=== PATIENT | female | born 1960 | race African-American/Black ===

== ENCOUNTER 2016-11-09 20:20 | Inpatient (IN) | payer OTHER ==
[~2016-11-09] VITALS: Ht 172.7 cm; Wt 106.1 kg
[~2016-11-09 20:20] MED LIST: ALLO300T PO; AMLO1CAP12 PO; APIX5TAB PO; ASPI325T11 PO; ASPI325T4 PO; ASPI81TA9 PO; BUME2TAB PO; CALC200T23 PO; CETI10CA PO; CHEMO; CHOL10003 PO; CHOL2000 PO; CLON0.2T PO; CLON0.3T PO; DENO120V SQ; EXEM25TA2 PO; FLUT1DIS3 IH; FURO-68 PO; FURO-69 PO; GABA-586 PO; GLIM1TAB2 PO; GUAI600T38 PO; HYDR25TA9 PO; IPRA3AMP NEB; LETR2.5T18 PO; LEVO250T25 PO; LORA10TA3 PO; MAG DELAY64 MG PO; METH-38 PO; METO100T2 PO; METO25TA4 PO; MONT10TA9 PO; MOVANTIK25 MG PO; MULT1TAB52 PO; OXYC-250 PO; OXYC40TA21 PO; POLY17PO5 PO; POTA10CA PO; PRED20TA PO; PROAIR HFA8.5 GM IH; SENN8.6C2 PO
--- NOTE | 2016-11-09 21:41 | RAD ---
PROCEDURE CT head without intravenous contrast. HISTORY Altered mental status. TECHNIQUE Axial images are obtained of the head from the skull base through the vertex without IV contrast Exposure: One or more of the following individualized dose reduction techniques were utilized for this examination: 1. Automated exposure control. 2. Adjustment of the mA and/or kV according to patient size. 3. Use of iterative reconstruction technique. COMPARISON None. FINDINGS The ventricles are appropriate in size, shape, and location for the patient's age.No obvious intracranial mass, mass-effect, midline shift, hemorrhage or obvious acute infarction is identified.Basilar cisterns are patent. Patchy, nonspecific white matter changes are seen, probably from chronic microvascular ischemic disease. Numerous small lytic lesions are seen in the calvarium. These could represent metastatic disease versus myeloma.The visualized paranasal sinuses appear clear. IMPRESSION 1. No acute intracranial process. Please note that CT can be relatively insensitive to acute ischemic infarction for up to 24 hours after symptom onset. 2. Nonspecific white matter changes, probably from chronic microvascular ischemic disease. 3. Multiple small numerous small lytic lesions of the calvarium. Correlate with possibility of metastatic disease versus myeloma. Electronically signed by: Cong Darden MD (Nov 09, 2016 21:40:04)
[2016-11-09 22:08] LABS: INR 1.5 (0.8-1.1)
[2016-11-09 22:38] LABS: BASO # 0.1 x10^3/uL (0.0-0.2); BASO % 1 % (0-3); EOS % 0 % (0-3); HEMATOCRIT 32.9 % (36.0-47.0); HEMOGLOBIN 10.3 g/dL (12.0-15.5); LYMPH # 1.6 x10^3/uL (1.0-4.8); LYMPH % 18 % (24-48); MEAN CORPUSCULAR HEMOGLOBIN 33 pg (25-35); MEAN CORPUSCULAR HGB CONC 31 g/dL (31-37); MEAN CORPUSCULAR VOLUME 106 fL (79-100); MONO % 7 % (0-9); NEUT % 74 % (31-73); PLATELET COUNT 63 x10^3/uL (140-400); RED BLOOD COUNT 3.12 x10^6/uL (3.50-5.40); RED CELL DISTRIBUTION WIDTH 24.4 % (11.5-14.5); WHITE BLOOD COUNT 8.7 x10^3/uL (4.0-11.0)
[2016-11-09 22:53] LABS: CALCIUM 9.3 mg/dL (8.5-10.1); CREATININE 4.8 mg/dL (0.6-1.0); GFR 11.5; POTASSIUM 3.5 mmol/L (3.5-5.1)
[2016-11-09 22:59] LABS: ALBUMIN 2.1 g/dL (3.4-5.0); DIRECT BILIRUBIN 6.9 mg/dL (0.0-0.2); MAGNESIUM 2.6 mg/dL (1.8-2.4); TOTAL BILIRUBIN 9.1 mg/dL (0.2-1.0); TOTAL PROTEIN 6.6 g/dL (6.4-8.2)
[2016-11-09 23:08] LABS: CKMB MASS 1.3 ng/mL (0.0-3.6); CREATINE KINASE 61 U/L (26-192)
[2016-11-09 23:09] LABS: PLT ESTIMATE DECREASED (ADEQUATE); POLYCHROMASIA SLIGHT
[2016-11-09 23:10] LABS: ANISOCYTOSIS MOD
--- NOTE | 2016-11-09 23:36 | PHYS DOC ---
Past Medical History Past Medical History: Cancer, COPD, Diabetes-Type II, Hypertension, Other Additional Past Medical Histor: "spinal mets" left breast cancer TREATING W/ TRIAL MEDICATION,SLEEP APNEA Past Surgical History: Other Additional Past Surgical Histo: L MASTECTOMY,R BREAST RECONSTRUCTION Alcohol Use: None Drug Use: None Adult General Chief Complaint Chief Complaint: DYSPNEA/RESPIRATOY DISTRESS HPI HPI Patient is a 55 year old female who presents with altered mental status. Patient was brought to the emergency department by EMS after family called due to concern for the patient's mental status. The patient has reportedly been having increasing lethargy over the past week. Patient has history of breast cancer status post mastectomy and currently follows with oncology at [facility]. The patient was found to have decreased oxygen saturation in the mid 80s and was started on supplemental oxygen prior to arrival. The patient is delayed in responsiveness but does answer my questions on interview. Patient denies any pain. Patient is not sure where she is currently but she is oriented to self. Family arrived during the patient interview and stated that over the past week the patient has been having increasing yellowing of the eyes. They're concerned that she may also have renal failure as she had been admitted here for similar problems in the past. The patient was admitted in August at [facility] due to severe metabolic derangements. After treatment, the family stated that she improved for approximately 3 weeks before starting to have worsening problems with generalized weakness and lethargy. Review of Systems Review of Systems Constitutional: Denies fever or chills [] Eyes: Denies change in visual acuity, redness, or eye pain [] HENT: Denies nasal congestion or sore throat [] Respiratory: Shortness of breath [] Cardiovascular: Denies chest pain or edema [] GI: Denies abdominal pain, nausea, vomiting, bloody stools or diarrhea [] : Denies dysuria or hematuria [] Musculoskeletal: Denies back pain or joint pain [] Integument: Denies rash or skin lesions [] Neurologic: Confusion, lethargy, Denies headache, focal weakness or sensory changes [] Allergies Allergies Allergies Coded Allergies Type Severity Reaction Last Updated Verified shellfish derived Allergy Intermediate hives 05/19/16 Yes Physical Exam Physical Exam Constitutional: Lethargic, afebrile, no acute distress. [] HENT: Normocephalic, atraumatic, bilateral external ears normal, oropharynx dry , no oral exudates, nose normal. [] Eyes: PERRLA, EOMI, scleral icterus present, conjunctiva normal, no discharge. [ ] Neck: Normal range of motion, no tenderness, supple, no stridor. [] Cardiovascular: Normal rate, irregular rhythm, no murmur [] Lungs & Thorax: Right-sided mastectomy, Bilateral breath sounds clear to auscultation [] Abdomen: Bowel sounds normal, soft, no tenderness, no masses, no pulsatile masses. [] Skin: Warm, dry, no erythema, no rash. [] Back: No tenderness, no CVA tenderness. [] Extremities: No tenderness, no cyanosis, no clubbing, ROM intact, trace pedal edema bilaterally. [] Neurologic: Lethargic, oriented to self, normal motor function, normal sensory function, no focal deficits noted. [] Current Patient Data Vital Signs Vital Signs Date Time Temp Pulse Resp B/P Pulse Ox O2 Delivery O2 Flow Rate FiO2 11/09/16 20:21 97.4 89 15 108/69 98 Room Air 97.4 Lab Values Laboratory Tests Test 11/09/16 21:45 11/09/16 22:30 Prothrombin Time 17.0SEC (11.7-14.0) H Prothrombin Time INR 1.5 (0.8-1.1) H PTT 42SEC (24-38) H Lactic Acid Level 1.5mmol/L (0.4-2.0) White Blood Count 8.7x10^3/uL (4.0-11.0) Red Blood Count 3.12x10^6/uL (3.50-5.40) L Hemoglobin 10.3g/dL (12.0-15.5) L Hematocrit 32.9% (36.0-47.0) L Mean Corpuscular Volume 106fL (79-100) H Mean Corpuscular Hemoglobin 33pg (25-35) Mean Corpuscular Hemoglobin Concent 31g/dL (31-37) Red Cell Distribution Width 24.4% (11.5-14.5) H Platelet Count 63x10^3/uL (140-400) L Neutrophils (%) (Auto) 74% (31-73) H Lymphocytes (%) (Auto) 18% (24-48) L Monocytes (%) (Auto) 7% (0-9) Eosinophils (%) (Auto) 0% (0-3) Basophils (%) (Auto) 1% (0-3) Neutrophils # (Auto) 6.5x10^3uL (1.8-7.7) Lymphocytes # (Auto) 1.6x10^3/uL (1.0-4.8) Monocytes # (Auto) 0.6x10^3/uL (0.0-1.1) Eosinophils # (Auto) 0.0x10^3/uL (0.0-0.7) Basophils # (Auto) 0.1x10^3/uL (0.0-0.2) Platelet Estimate Decreased (ADEQUATE) Polychromasia Slight Anisocytosis Mod Macrocytosis Slight Sodium Level 141mmol/L (136-145) Potassium Level 3.5mmol/L (3.5-5.1) Chloride Level 101mmol/L (98-107) Carbon Dioxide Level 24mmol/L (21-32) Anion Gap 16 (6-14) H Blood Urea Nitrogen 130mg/dL (7-20) H Creatinine 4.8mg/dL (0.6-1.0) H Estimated GFR (Cockcroft-Gault) 11.5 Glucose Level 110mg/dL (70-99) H Calcium Level 9.3mg/dL (8.5-10.1) Magnesium Level 2.6mg/dL (1.8-2.4) H Total Bilirubin 9.1mg/dL (0.2-1.0) H Direct Bilirubin 6.9mg/dL (0.0-0.2) H Aspartate Amino Transferase (AST) 230U/L (15-37) H Alanine Aminotransferase (ALT) 50U/L (14-59) Alkaline Phosphatase 335U/L (46-116) H Ammonia 67mcmol/L (11-34) H Creatine Kinase 61U/L (26-192) Creatine Kinase MB (Mass) 1.3ng/mL (0.0-3.6) Creatine Kinase MB Relative Index % (0-4) Troponin I Quantitative 0.051ng/mL (0.000-0.055) TU-Aki-X-Type Natriuretic Peptide 88052vx/mL (0-124) H Total Protein 6.6g/dL (6.4-8.2) Albumin 2.1g/dL (3.4-5.0) L Laboratory Tests 11/09/16 22:30 Laboratory Tests 11/09/16 22:30 EKG EKG Interpreted by me: Heart rate 90, atrial fibrillation, normal axis, no acute ST/ T-wave abnormalities present [] Radiology/Procedures Radiology/Procedures One view AP chest x-ray interpreted by me: Cardiomegaly, no infiltrate, no effusion Right hip 3 view x-ray series interpreted by me: Severe degenerative joint disease of right hip, no acute fractures, no dislocations [facility] [address] [place] [address] IMAGING REPORT Signed PATIENT: RAFFI FRANK ACCOUNT: [id number] : 1960 LOCATION: ER AGE: 55 SEX: F EXAM STATUS: REG ER ORD. PHYSICIAN: SEBASTIAN ORO MD REASON: altered mental status PROCEDURE: HEAD WO CONTRAST PROCEDURE CT head without intravenous contrast. HISTORY Altered mental status. TECHNIQUE Axial images are obtained of the head from the skull base through the vertex without IV contrast Exposure: One or more of the following individualized dose reduction techniques were utilized for this examination: 1. Automated exposure control. 2. Adjustment of the mA and/or kV according to patient size. 3. Use of iterative reconstruction technique. COMPARISON None. FINDINGS The ventricles are appropriate in size, shape, and location for the patient's age.No obvious intracranial mass, mass-effect, midline shift, hemorrhage or obvious acute infarction is identified.Basilar cisterns are patent. Patchy, nonspecific white matter changes are seen, probably from chronic microvascular ischemic disease. Numerous small lytic lesions are seen in the calvarium. These could represent metastatic disease versus myeloma.The visualized paranasal sinuses appear clear. IMPRESSION 1. No acute intracranial process. Please note that CT can be relatively insensitive to acute ischemic infarction for up to 24 hours after symptom onset. 2. Nonspecific white matter changes, probably from chronic microvascular ischemic disease. 3. Multiple small numerous small lytic lesions of the calvarium. Correlate with possibility of metastatic disease versus myeloma. Electronically signed by: Cong Paulson MD (Nov 09, 2016 21:40:04) DICTATED and SIGNED BY: CONG PAULSON MD DATE: 11/09/162139 CC: SEBASTIAN ORO MD; JESUS ECHAVARRIA MD ~ [] Course & Med Decision Making Course & Med Decision Making Pertinent Labs and Imaging studies reviewed. (See chart for details) The patient is showing evidence of multisystem organ failure at this time. I sat and spoke with the patient's family in regard to presence of significant metabolic derangements. At this time the patient will be started on IV fluids for gentle rehydration. My overall impression of this patient's condition is grave. The family would like the patient to remain full code at this time. I spoke with Dr. Gilmore who accepted care patient in hospital. Consults were placed to Dr. Aguilar of nephrology, Dr. Sparks of GI, Dr. Thompson of pulmonology, and Dr. Marvin of oncology. Dragon Disclaimer Dragon Disclaimer This electronic medical record was generated, in whole or in part, using a voice recognition dictation system. Departure Departure Impression: Primary Impression: Acute on chronic renal failure Additional Impressions: Metabolic encephalopathy Acute liver failure Respiratory distress Severe protein-calorie malnutrition Disposition: ADMITTED INPATIENT Admitting Physician: Cong Gilmore Condition: GRAVE Referrals: JESUS ECHAVARRIA MD (PCP) Problem Qualifiers Additional Impressions: Acute liver failure Hepatic coma status: without hepatic coma Qualified Code: K72.00 - Acute and subacute hepatic failure without coma SEBASTIAN ORO MD Nov 09, 2016 23:36
[2016-11-10] VITALS (7 sets, daily range): BP systolic 90–110; BP diastolic 50–80
[2016-11-10] LABS: BARBITURATES NEG (NEG); BENZODIAZEPINES NEG (NEG); CANNABINOIDS NEG (NEG); COCAINE NEG (NEG); METHADONE NEG (NEG); OPIATES NEG (NEG); PHENCYCLIDINE NEG (NEG)
[2016-11-10] MEDS ORDERED: ONDANSETRON PF 4 MG/2 ML VIAL. IV PRN
[2016-11-10 00:02] LABS: ETHANOL, URINE NEG (NEG)
[2016-11-10 00:21] LABS: BILIRUBIN,URINE MODERATE (NEG); GLUCOSE,URINE NEGATIVE (NEG); NITRITE,URINE NEGATIVE (NEG); PROTEIN,URINE NEGATIVE (NEG-TRACE)
[2016-11-10 00:22] LABS: BACTERIA,URINE 0 /HPF (0-FEW); RBC,URINE 0 /HPF (0-2); SQUAMOUS EPITHELIAL CELL,UR OCC /LPF; WBC,URINE 0 /HPF (0-4)
[2016-11-10] MEDS: IV NORMAL SALINE 1000ML BAG 1,000 ML IV SCH ×2 (01:40→11:30)
[2016-11-10 05:29] LABS: CALCIUM 9.2 mg/dL (8.5-10.1); CREATININE 4.8 mg/dL (0.6-1.0); GFR 11.5; POTASSIUM 3.5 mmol/L (3.5-5.1)
[2016-11-10] MEDS ORDERED: POLYETHYLENE GLYCOL 3350 17 GM PACKET. PO PRN (07:30)
[2016-11-10] MEDS ORDERED: NON FORMULARY ITEM (Fluticasone/Salmeterol (Advair 250-50 Diskus) 1 INH) IH PRN (07:30)
[2016-11-10] MEDS ORDERED: METHOCARBAMOL 750 MG TABLET PO PRN (07:30)
[2016-11-10] MEDS ORDERED: NON FORMULARY ITEM (Albuterol Sulfate (Proair Hfa Inhaler) 2 PUFF) IH PRN (07:30)
[2016-11-10] MEDS ORDERED: OXYCODONE/APAP 10/325 TABLET. PO PRN (07:30)
--- NOTE | 2016-11-10 07:56 | EKG ---
[facility] [address] [place] [address] Test Date: 2016-11-09 Test Time: 21:31:29 Pat Name: RAFFI FRANK Department: Room: 2 Gender: F Loss Prevention Lead: : 1960 Requested By: SEBASTIAN ORO Order Number: [id number] Reading MD: Shahbaz Benson Measurements Intervals [place] Rate: 90 P: AR: QRS: 26 QRSD: 94 T: 54 QT: 402 QTc: 496 Interpretive Statements ATRIAL FIBRILLATION NO SPECIFIC ECG ABNORMALITIES Electronically Signed On 11-24-2016 14:46:16 [employer]ER TE[employer] PRIMARY by Shahbaz Benson
[2016-11-10] MEDS ORDERED: ALBUTEROL SULFATE 2.5 MG/3 ML NEBU. NEB PRN (08:00)
[2016-11-10] MEDS ORDERED: MULTIVITAMIN with MINERAL TABLET. PO SCH (09:00)
[2016-11-10] MEDS ORDERED: ALLOPURINOL 300 MG TABLET. PO SCH (09:00)
[2016-11-10] MEDS ORDERED: CETIRIZINE HCL 10 MG TABLET PO SCH (09:00)
[2016-11-10] MEDS ORDERED: HYDROCHLOROTHIAZIDE 25 MG TABLET PO SCH (09:00)
[2016-11-10] MEDS ORDERED: CHOLECALCIFEROL (VITAMIN D3) 1,000 UNIT TABLET PO SCH (09:00)
[2016-11-10] MEDS ORDERED: EXEMESTANE 25 MG TABLET PO SCH (09:00)
[2016-11-10] MEDS ORDERED: MAGNESIUM CHLORIDE ER 64 MG TABLET.ER PO SCH ×2 (09:00)
--- NOTE | 2016-11-10 09:03 | RAD ---
INDICATION: Short of breath COMPARISON: 08/08/2016 FINDINGS: Single view of chest obtained. Enlarged cardiac silhouette again seen. No definite new region of focal airspace consolidation. Degenerative changes spine IMPRESSION: Enlarged cardiac silhouette is again seen without definite new region of focal airspace consolidation.
--- NOTE | 2016-11-10 09:05 | RAD ---
Pelvis with right hip, 3 views, 11/09/2016: History: Hip pain There is severe narrowing of both hip joints with subchondral sclerosis, cyst formation and spurring. The findings are worse on the right. The findings indicate severe osteoarthritis. There are additional patchy sclerotic foci in the bones, best seen in the pelvis. These findings were also evident on the CT study from 08/02/2016 and again suggest osseous metastatic disease. No acute fracture or dislocation is identified. Aortoiliac calcific plaquing is present. IMPRESSION: 1. Severe osteoarthritis at both hips. 2. Patchy sclerotic lesions in the bones again suggesting metastatic disease.
[2016-11-10] MEDS: GABAPENTIN 300 MG CAPSULE. PO SCH ×3 (09:18→20:58)
[2016-11-10] MEDS: CALCIUM CARBONATE 500 MG TAB.CHEW PO SCH ×2 (09:18→17:00)
[2016-11-10] MEDS: GUAIFENESIN ER 600 MG TABLET.ER PO SCH ×2 (09:19→20:57)
[2016-11-10] MEDS: BUMETANIDE 1 MG TABLET PO SCH ×2 (09:19→20:57)
[2016-11-10] MEDS: METOPROLOL TART IMMED RELEASE 25 MG TABLET PO SCH ×2 (09:20→21:02)
[2016-11-10] MEDS: OXYCODONE ER 40 MG TAB.ER.12H. PO SCH ×2 (09:20→21:03)
--- NOTE | 2016-11-10 09:43 | PDOC ---
PULMONARY PROGRESS NOTES Vitals Vital Signs Date Time Temp Pulse Resp B/P Pulse Ox O2 Delivery O2 Flow Rate FiO2 11/10/16 09:20 Nasal Cannula 2.0 11/10/16 09:20 94 104/66 11/10/16 07:00 97.4 20 97 97.4 General: Alert, Oriented X4, No acute distress Lungs: Other Cardiovascular: S1, S2 Abdomen: Soft, Non-tender Extremities: Other Labs Laboratory Tests Test 11/09/16 21:45 11/09/16 22:30 11/09/16 23:30 11/10/16 03:30 Prothrombin Time 17.0SEC (11.7-14.0) Prothromb Time International Ratio 1.5 (0.8-1.1) Activated Partial Thromboplast Time 42SEC (24-38) Lactic Acid Level 1.5mmol/L (0.4-2.0) White Blood Count 8.7x10^3/uL (4.0-11.0) Red Blood Count 3.12x10^6/uL (3.50-5.40) Hemoglobin 10.3g/dL (12.0-15.5) Hematocrit 32.9% (36.0-47.0) Mean Corpuscular Volume 106fL (79-100) Mean Corpuscular Hemoglobin 33pg (25-35) Mean Corpuscular Hemoglobin Concent 31g/dL (31-37) Red Cell Distribution Width 24.4% (11.5-14.5) Platelet Count 63x10^3/uL (140-400) Neutrophils (%) (Auto) 74% (31-73) Lymphocytes (%) (Auto) 18% (24-48) Monocytes (%) (Auto) 7% (0-9) Eosinophils (%) (Auto) 0% (0-3) Basophils (%) (Auto) 1% (0-3) Neutrophils # (Auto) 6.5x10^3uL (1.8-7.7) Lymphocytes # (Auto) 1.6x10^3/uL (1.0-4.8) Monocytes # (Auto) 0.6x10^3/uL (0.0-1.1) Eosinophils # (Auto) 0.0x10^3/uL (0.0-0.7) Basophils # (Auto) 0.1x10^3/uL (0.0-0.2) Platelet Estimate Decreased (ADEQUATE) Polychromasia Slight Anisocytosis Mod Macrocytosis Slight Sodium Level 141mmol/L (136-145) 142mmol/L (136-145) Potassium Level 3.5mmol/L (3.5-5.1) 3.5mmol/L (3.5-5.1) Chloride Level 101mmol/L (98-107) 104mmol/L (98-107) Carbon Dioxide Level 24mmol/L (21-32) 24mmol/L (21-32) Anion Gap 16 (6-14) 14 (6-14) Blood Urea Nitrogen 130mg/dL (7-20) 134mg/dL (7-20) Creatinine 4.8mg/dL (0.6-1.0) 4.8mg/dL (0.6-1.0) Estimated GFR (Cockcroft-Gault) 11.5 11.5 Glucose Level 110mg/dL (70-99) 95mg/dL (70-99) Calcium Level 9.3mg/dL (8.5-10.1) 9.2mg/dL (8.5-10.1) Magnesium Level 2.6mg/dL (1.8-2.4) Total Bilirubin 9.1mg/dL (0.2-1.0) Direct Bilirubin 6.9mg/dL (0.0-0.2) Aspartate Amino Transf (AST/SGOT) 230U/L (15-37) Alanine Aminotransferase (ALT/SGPT) 50U/L (14-59) Alkaline Phosphatase 335U/L (46-116) Ammonia 67mcmol/L (11-34) Creatine Kinase 61U/L (26-192) Creatine Kinase MB (Mass) 1.3ng/mL (0.0-3.6) Creatine Kinase MB Relative Index % (0-4) Troponin I Quantitative 0.051ng/mL (0.000-0.055) [id number]-Type Natriuretic Peptide 43880up/mL (0-124) Total Protein 6.6g/dL (6.4-8.2) Albumin 2.1g/dL (3.4-5.0) Urine Collection Type U cath Urine Color Svetlana Urine Clarity Clear Urine pH 5.0 Urine Specific [place] 1.015 Urine Protein Negativemg/dL (NEG-TRACE) Urine Glucose (UA) Negativemg/dL (NEG) Urine Ketones (Stick) Negativemg/dL (NEG) Urine Blood Negative (NEG) Urine Nitrite Negative (NEG) Urine Bilirubin Moderate (NEG) Urine Urobilinogen Dipstick 1.0mg/dL (0.2 mg/dL) Urine Leukocyte Esterase Negative (NEG) Urine RBC 0/HPF (0-2) Urine WBC 0/HPF (0-4) Urine Squamous Epithelial Cells Occ/LPF Urine Amorphous Sediment Present/HPF Urine Bacteria 0/HPF (0-FEW) Urine Hyaline Casts Few/HPF Urine Mucus Slight/LPF Urine Opiates Screen Neg (NEG) Urine Methadone Screen Neg (NEG) Urine Barbiturates Neg (NEG) Urine Phencyclidine Screen Neg (NEG) Urine Amphetamine/Methamphetamine Neg (NEG) Urine Benzodiazepines Screen Neg (NEG) Urine Cocaine Screen Neg (NEG) Urine Cannabinoids Screen Neg (NEG) Urine Ethyl Alcohol Neg (NEG) Laboratory Tests Test 11/09/16 21:45 11/09/16 22:30 11/09/16 23:30 11/10/16 03:30 Prothrombin Time 17.0SEC (11.7-14.0) Prothromb Time International Ratio 1.5 (0.8-1.1) Activated Partial Thromboplast Time 42SEC (24-38) Lactic Acid Level 1.5mmol/L (0.4-2.0) White Blood Count 8.7x10^3/uL (4.0-11.0) Red Blood Count 3.12x10^6/uL (3.50-5.40) Hemoglobin 10.3g/dL (12.0-15.5) Hematocrit 32.9% (36.0-47.0) Mean Corpuscular Volume 106fL (79-100) Mean Corpuscular Hemoglobin 33pg (25-35) Mean Corpuscular Hemoglobin Concent 31g/dL (31-37) Red Cell Distribution Width 24.4% (11.5-14.5) Platelet Count 63x10^3/uL (140-400) Neutrophils (%) (Auto) 74% (31-73) Lymphocytes (%) (Auto) 18% (24-48) Monocytes (%) (Auto) 7% (0-9) Eosinophils (%) (Auto) 0% (0-3) Basophils (%) (Auto) 1% (0-3) Neutrophils # (Auto) 6.5x10^3uL (1.8-7.7) Lymphocytes # (Auto) 1.6x10^3/uL (1.0-4.8) Monocytes # (Auto) 0.6x10^3/uL (0.0-1.1) Eosinophils # (Auto) 0.0x10^3/uL (0.0-0.7) Basophils # (Auto) 0.1x10^3/uL (0.0-0.2) Platelet Estimate Decreased (ADEQUATE) Polychromasia Slight Anisocytosis Mod Macrocytosis Slight Sodium Level 141mmol/L (136-145) 142mmol/L (136-145) Potassium Level 3.5mmol/L (3.5-5.1) 3.5mmol/L (3.5-5.1) Chloride Level 101mmol/L (98-107) 104mmol/L (98-107) Carbon Dioxide Level 24mmol/L (21-32) 24mmol/L (21-32) Anion Gap 16 (6-14) 14 (6-14) Blood Urea Nitrogen 130mg/dL (7-20) 134mg/dL (7-20) Creatinine 4.8mg/dL (0.6-1.0) 4.8mg/dL (0.6-1.0) Estimated GFR (Cockcroft-Gault) 11.5 11.5 Glucose Level 110mg/dL (70-99) 95mg/dL (70-99) Calcium Level 9.3mg/dL (8.5-10.1) 9.2mg/dL (8.5-10.1) Magnesium Level 2.6mg/dL (1.8-2.4) Total Bilirubin 9.1mg/dL (0.2-1.0) Direct Bilirubin 6.9mg/dL (0.0-0.2) Aspartate Amino Transf (AST/SGOT) 230U/L (15-37) Alanine Aminotransferase (ALT/SGPT) 50U/L (14-59) Alkaline Phosphatase 335U/L (46-116) Ammonia 67mcmol/L (11-34) Creatine Kinase 61U/L (26-192) Creatine Kinase MB (Mass) 1.3ng/mL (0.0-3.6) Creatine Kinase MB Relative Index % (0-4) Troponin I Quantitative 0.051ng/mL (0.000-0.055) UD-Rkw-H-Type Natriuretic Peptide 30502go/mL (0-124) Total Protein 6.6g/dL (6.4-8.2) Albumin 2.1g/dL (3.4-5.0) Urine Collection Type U cath Urine Color Svetlana Urine Clarity Clear Urine pH 5.0 Urine Specific [place] 1.015 Urine Protein Negativemg/dL (NEG-TRACE) Urine Glucose (UA) Negativemg/dL (NEG) Urine Ketones (Stick) Negativemg/dL (NEG) Urine Blood Negative (NEG) Urine Nitrite Negative (NEG) Urine Bilirubin Moderate (NEG) Urine Urobilinogen Dipstick 1.0mg/dL (0.2 mg/dL) Urine Leukocyte Esterase Negative (NEG) Urine RBC 0/HPF (0-2) Urine WBC 0/HPF (0-4) Urine Squamous Epithelial Cells Occ/LPF Urine Amorphous Sediment Present/HPF Urine Bacteria 0/HPF (0-FEW) Urine Hyaline Casts Few/HPF Urine Mucus Slight/LPF Urine Opiates Screen Neg (NEG) Urine Methadone Screen Neg (NEG) Urine Barbiturates Neg (NEG) Urine Phencyclidine Screen Neg (NEG) Urine Amphetamine/Methamphetamine Neg (NEG) Urine Benzodiazepines Screen Neg (NEG) Urine Cocaine Screen Neg (NEG) Urine Cannabinoids Screen Neg (NEG) Urine Ethyl Alcohol Neg (NEG) Medications Active Scripts Medications Dose Route/Sig Days Date Category Dose Instructions Mag Delay (Magnesium Chloride) 64 Mg Tablet.er 64 Mg PO DAILY 08/09/16 Rx Bumetanide 2 Mg Tablet 2 Mg PO BID 08/09/16 Rx Montelukast Sodium Tablet (Montelukast Sodium) 10 Mg Tablet 10 Mg PO QHS 08/08/16 Rx Zyrtec (Cetirizine Hcl) 10 Mg Capsule 10 Mg PO 07/07/16 Reported Metoprolol Tartrate 25 Mg Tablet 25 Mg PO BID 30 07/07/16 Rx Hydrochlorothiazide Tablet (Hydrochlorothiazide) 25 Mg Tablet 25 Mg PO DAILY 30 07/07/16 Rx Calcium Carbonate 200 Mg Tab.chew 1,000 Mg PO BIDWMEALS 30 07/07/16 Rx Aspirin Ec (Aspirin) 325 Mg Tablet.dr 325 Mg PO DAILYWBKFT 30 07/07/16 Rx Robaxin-750 (Methocarbamol) 750 Mg Tablet 2 Tab PO TID PRN 07/01/16 Reported Duoneb 0.5-3(2.5) Mg/3 Ml (Albuterol/Ipratropium) 3 Ml Ampul.neb 3 Ml NEB QID 05/21/16 Rx Miralax (Polyethylene Glycol 3350) 17 Gm Powd.pack 1 Pkt PO PRN DAILY PRN 05/17/16 Reported Mucinex (Guaifenesin) 600 Mg Tablet.er 1 Tab PO BID 05/16/16 Reported Exemestane 25 Mg Tablet 25 Mg PO DAILY 05/16/16 Reported CHEMO MED Multivitamins (Multivitamin) 1 Each Tablet 1 Tab PO DAILY 01/06/16 Reported Vitamin D (Cholecalciferol (Vitamin D3)) 2,000 Unit Capsule 1 Cap PO DAILY 11/11/15 Reported Percocet 10-325 Mg Tablet (Oxycodone/Acetaminophen) 1 Each Tablet 1 Tab PO PRN Q6HRS PRN 09/14/15 Reported Oxycontin (Oxycodone HCl) 40 Mg Tab.er.12h 40 Mg PO BID 09/14/15 Reported Senna (Sennosides) 8.6 Mg Capsule 8.6 Mg PO PRN DAILY PRN 08/06/15 Reported Allopurinol 300 Mg Tablet 1 Tab PO DAILY 08/06/15 Reported Advair 250-50 Diskus (Fluticasone/Salmeterol) 1 Each Disk.w.dev 1 Inh IH BID PRN 08/06/15 Reported Loratadine 10 Mg Tablet 1 Tab PO DAILY 08/06/15 Reported Proair Hfa Inhaler (Albuterol Sulfate) 8.5 Gm Hfa.aer.ad 2 Puff IH PRN Q4-6HRS PRN 08/06/15 Reported Gabapentin 300 Mg Capsule 1 Cap PO TID 08/06/15 Reported Impression . [id number] THANKS HD SHOULD HELP CXR HAS IMPROVED COMPARED TO LAST ADMISSION TING QUINN MD Nov 10, 2016 09:43
--- NOTE | 2016-11-10 09:49 | PDOC2 ---
GI CONSULT Reason For Consult: Liver failure HPI: HPI: History from chart. 55 y/o AA female evaluated in ER for AMS. PMH as below, significant for metastatic breast cancer. Labs: WBC 8.7, Hgb 10.3, plt 64, INR 1.5, BUN 134, Cr 4.8, bili 9.1 (direct 6.9), AST 230, ALT 50, Alk Phos 335, ammonia 67, BNP [address]. Head [address]: multiple small numerous small lytic lesions of the calvarium. Abd US has been ordered. Pt answers a few questions; denies pain, says had noted yellowing of eyes. PMH: PMH: from chart - metastatic breast cancer (to bone, lung) s/p chemo/rad and left mastectomy, HTN, DM, A Fib, CHF, CKD, COPD, AMBAR, gout, depression, lymphedema, cholecystectomy FH: Family History: Cancer (colon, prostate) ROS: Difficult to obtain. Denies pain. +jaundice VItals: Vitals: Vital Signs Date Time Temp Pulse Resp B/P Pulse Ox O2 Delivery O2 Flow Rate FiO2 11/10/16 09:20 Nasal Cannula 2.0 11/10/16 09:20 94 104/66 11/10/16 07:00 97.4 20 97 97.4 Labs: Labs: Laboratory Tests Test 11/09/16 21:45 11/09/16 22:30 11/09/16 23:30 11/10/16 03:30 Prothrombin Time 17.0SEC (11.7-14.0) Prothromb Time International Ratio 1.5 (0.8-1.1) Activated Partial Thromboplast Time 42SEC (24-38) Lactic Acid Level 1.5mmol/L (0.4-2.0) White Blood Count 8.7x10^3/uL (4.0-11.0) Red Blood Count 3.12x10^6/uL (3.50-5.40) Hemoglobin 10.3g/dL (12.0-15.5) Hematocrit 32.9% (36.0-47.0) Mean Corpuscular Volume 106fL (79-100) Mean Corpuscular Hemoglobin 33pg (25-35) Mean Corpuscular Hemoglobin Concent 31g/dL (31-37) Red Cell Distribution Width 24.4% (11.5-14.5) Platelet Count 63x10^3/uL (140-400) Neutrophils (%) (Auto) 74% (31-73) Lymphocytes (%) (Auto) 18% (24-48) Monocytes (%) (Auto) 7% (0-9) Eosinophils (%) (Auto) 0% (0-3) Basophils (%) (Auto) 1% (0-3) Neutrophils # (Auto) 6.5x10^3uL (1.8-7.7) Lymphocytes # (Auto) 1.6x10^3/uL (1.0-4.8) Monocytes # (Auto) 0.6x10^3/uL (0.0-1.1) Eosinophils # (Auto) 0.0x10^3/uL (0.0-0.7) Basophils # (Auto) 0.1x10^3/uL (0.0-0.2) Platelet Estimate Decreased (ADEQUATE) Polychromasia Slight Anisocytosis Mod Macrocytosis Slight Sodium Level 141mmol/L (136-145) 142mmol/L (136-145) Potassium Level 3.5mmol/L (3.5-5.1) 3.5mmol/L (3.5-5.1) Chloride Level 101mmol/L (98-107) 104mmol/L (98-107) Carbon Dioxide Level 24mmol/L (21-32) 24mmol/L (21-32) Anion Gap 16 (6-14) 14 (6-14) Blood Urea Nitrogen 130mg/dL (7-20) 134mg/dL (7-20) Creatinine 4.8mg/dL (0.6-1.0) 4.8mg/dL (0.6-1.0) Estimated GFR (Cockcroft-Gault) 11.5 11.5 Glucose Level 110mg/dL (70-99) 95mg/dL (70-99) Calcium Level 9.3mg/dL (8.5-10.1) 9.2mg/dL (8.5-10.1) Magnesium Level 2.6mg/dL (1.8-2.4) Total Bilirubin 9.1mg/dL (0.2-1.0) Direct Bilirubin 6.9mg/dL (0.0-0.2) Aspartate Amino Transf (AST/SGOT) 230U/L (15-37) Alanine Aminotransferase (ALT/SGPT) 50U/L (14-59) Alkaline Phosphatase 335U/L (46-116) Ammonia 67mcmol/L (11-34) Creatine Kinase 61U/L (26-192) Creatine Kinase MB (Mass) 1.3ng/mL (0.0-3.6) Creatine Kinase MB Relative Index % (0-4) Troponin I Quantitative 0.051ng/mL (0.000-0.055) QR-Bbt-Z-Type Natriuretic Peptide 12235mn/mL (0-124) Total Protein 6.6g/dL (6.4-8.2) Albumin 2.1g/dL (3.4-5.0) Urine Collection Type U cath Urine Color Svetlana Urine Clarity Clear Urine pH 5.0 Urine Specific [place] 1.015 Urine Protein Negativemg/dL (NEG-TRACE) Urine Glucose (UA) Negativemg/dL (NEG) Urine Ketones (Stick) Negativemg/dL (NEG) Urine Blood Negative (NEG) Urine Nitrite Negative (NEG) Urine Bilirubin Moderate (NEG) Urine Urobilinogen Dipstick 1.0mg/dL (0.2 mg/dL) Urine Leukocyte Esterase Negative (NEG) Urine RBC 0/HPF (0-2) Urine WBC 0/HPF (0-4) Urine Squamous Epithelial Cells Occ/LPF Urine Amorphous Sediment Present/HPF Urine Bacteria 0/HPF (0-FEW) Urine Hyaline Casts Few/HPF Urine Mucus Slight/LPF Urine Opiates Screen Neg (NEG) Urine Methadone Screen Neg (NEG) Urine Barbiturates Neg (NEG) Urine Phencyclidine Screen Neg (NEG) Urine Amphetamine/Methamphetamine Neg (NEG) Urine Benzodiazepines Screen Neg (NEG) Urine Cocaine Screen Neg (NEG) Urine Cannabinoids Screen Neg (NEG) Urine Ethyl Alcohol Neg (NEG) Allergies: Coded Allergies: shellfish derived (Verified Allergy, Intermediate, hives, 05/19/16) seafood Medications: Current Medications Medications (Trade) Dose Ordered Sig/Haja Route PRN Reason Start Time Stop Time Status Last Admin Dose Admin Sodium Chloride (Iv Sodium Chloride 0.9% 1000ml Bag) 1,000 ml @ 100 mls/hr Q10H IV 11/09/16 23:57 11/10/16 23:56 2/16/17 01:40 Allopurinol (Zyloprim) 300 mg DAILY PO 11/10/16 09:00 11/10/16 09:20 Calcium Carbonate/ Glycine (Tums) 1,000 mg BIDWMEALS PO 11/10/16 08:00 11/10/16 09:18 Gabapentin (Neurontin) 300 mg TID PO 11/10/16 09:00 11/10/16 09:18 Guaifenesin (Mucinex) 600 mg BID PO 11/10/16 09:00 11/10/16 09:19 Hydrochlorothiazide (Hydrodiuril) 25 mg DAILY PO 11/10/16 09:00 11/10/16 09:18 Metoprolol Tartrate (Lopressor) 25 mg BID PO 11/10/16 09:00 11/10/16 09:20 Oxycodone HCl (Oxycontin) 40 mg BID PO 11/10/16 09:00 11/10/16 09:20 Bumetanide (Bumex) 2 mg BID PO 11/10/16 09:00 11/10/16 09:19 Vitamin D (Vitamin D3) 2,000 unit DAILY PO 11/10/16 09:00 11/10/16 09:18 Cetirizine HCl (Zyrtec) 10 mg DAILY PO 11/10/16 09:00 11/10/16 09:18 Magnesium Chloride (Mag Delay) 64 mg DAILY PO 11/10/16 09:00 11/10/16 09:19 Imaging: Imaging: Head CT IMPRESSION 1. No acute intracranial process. Please note that CT can be relatively insensitive to acute ischemic infarction for up to 24 hours after symptom onset. 2. Nonspecific white matter changes, probably from chronic microvascular ischemic disease. 3. Multiple small numerous small lytic lesions of the calvarium. Correlate with possibility of metastatic disease versus myeloma. Hip/Pelvis X-Ray IMPRESSION: 1. Severe osteoarthritis at both hips. 2. Patchy sclerotic lesions in the bones again suggesting metastatic disease. CXR IMPRESSION: Enlarged cardiac silhouette is again seen without definite new region of focal airspace consolidation. CT A/P w/o contrast 07/2016 IMPRESSION Small amount of ascites throughout the abdomen and pelvis. No urinary tract stone or hydronephrosis or hydroureter. Diffuse mixed sclerotic and lytic process of the bones consistent with metastatic disease. Severe primary degenerative osteoarthritis of both hip joints. Cardiomegaly. Bilateral ground- glass lung infiltrates which may represent pulmonary edema or atelectasis. There is a small consolidative infiltrate within the inferior aspect of the medial segment of the right middle lobe. PE: GEN: NAD HEENT: +sclera icteric LUNGS: decreased anteriorly w/ nasal cannula HEART: S1S2 ABD: NABS, non-tender, firm in epigastrium/RUQ EXTREMITY: BLE edema SKIN: No rashes NEURO/PSYCH: confused A/P: A/P: Jaundice -bili 9.1, other labs as above -s/p cholecystectomy Metastatic breast cancer TALITA, CHF, COPD -- Abd US ordered. Await results and other specialists' eval. (?ERCP later on) MARIA DE JESUS SANZ Nov 10, 2016 09:48
[2016-11-10] MEDS: BUDESONIDE 0.5 MG/2 ML NEBU NEB SCH ×2 (11:50→20:15)
[2016-11-10] MEDS: IPRATRPIUM/ALBUTEROL 0.5/2.5MG 3 ML NEBU. NEB SCH ×3 (11:51→20:15)
--- NOTE | 2016-11-10 11:57 | PDOC2 ---
CONSULT Date of Consult Date of Consult DATE: 11/10/16 TIME: 11:51 Reason for Consult Reason for Consult: RENAL FAILURE Referring Physician Referring Physician: SANTANA Identification/Chief Complaint Chief Complaint CONFUSION Source Source: Chart review History of Present Illness Reason for Visit: THIS IS A 55 YR OLD ADMITTED WITH CONFUSION AND SOB. SHE IS NOTED TO HAVE TALITA ATOP HER CKD STAGE 4 AND LIVER FAILURE. HX PERTINENT FOR MET BREAST CANCER FOR WHICH SHE HAS UNDERGONE CHEMO, RAD AND LEFT MASTECTOMY. CR WAS ABOUT 2.5 C/W STAGE 4 CKD LAST YEAR. NOW IT IS 4.8 WITH A BUN OF 130. T BILI IS 9.0 Past Medical History Cardiovascular: AFIB, HTN, Hyperlipidemia Pulmonary: COPD CENTRAL NERVOUS SYSTEM: Other GI: GERD Heme/Onc: Cancer Hepatobiliary: No pertinent hx Psych: Anxiety Musculoskeletal: Other Rheumatologic: No pertinent hx Infectious disease: No pertinent hx Renal/: Chronic renal insuff Endocrine: Diabetes Past Surgical History Past Surgical History: Cholecystectomy, Mastectomy Family History Family History: Diabetes, Hypertension Social History Lives: with Family Current Problem List Problem List Problems Medical Problems: (1) Acute liver failure Status: Acute (2) Acute on chronic renal failure Status: Acute (3) Acute on chronic renal failure Status: Acute (4) Metabolic encephalopathy Status: Acute (5) Respiratory distress Status: Acute (6) Severe protein-calorie malnutrition Status: Acute Current Medications Current Medications Current Medications Ondansetron HCl 4 mg 4 mg PRN Q8HRS PRN IV NAUSEA/VOMITING; Start 11/10/16 at 00:00; Stop 11/10/16 at 23:59 Sodium Chloride (Iv Sodium Chloride 0.9% 1000ml Bag) 1,000 ml @ 100 mls/hr Q10H IV Last administered on 11/10/16 11:30; Start 11/09/16 at 23:57; Stop at 23:56 Allopurinol (Zyloprim) 300 mg DAILY PO Last administered on 11/10/16 09:20; Start 11/10/16 at 09:00 Calcium Carbonate/ Glycine (Tums) 1,000 mg BIDWMEALS PO Last administered on 09:18; Start 11/10/16 at 08:00 Exemestane (Aromasin) 25 mg DAILY PO Last administered on 11/10/16 10:04; Start 11/10/16 at 09:00 Gabapentin (Neurontin) 300 mg TID PO Last administered on 11/10/16 09:18; Start 11/10/16 at 09:00 Guaifenesin (Mucinex) 600 mg BID PO Last administered on 11/10/16 09:19; Start 11/10/16 at 09:00 Hydrochlorothiazide (Hydrodiuril) 25 mg DAILY PO Last administered on 09:18; Start 11/10/16 at 09:00 Albuterol/ Ipratropium (Duoneb) 3 ml RTQID NEB ; Start 11/10/16 at 08:00 Methocarbamol (Robaxin) 750 mg PRN TID PRN PO PAIN; Start 11/10/16 at 07:30 Metoprolol Tartrate (Lopressor) 25 mg BID PO Last administered on 11/10/16 09: 20; Start 11/10/16 at 09:00 Montelukast Sodium (Singulair) 10 mg QHS PO ; Start 11/10/16 at 21:00 Oxycodone HCl (Oxycontin) 40 mg BID PO Last administered on 11/10/16 09:20; Start 11/10/16 at 09:00 Oxycodone/ Acetaminophen (Percocet 10/325) 1 tab PRN Q6HRS PRN PO PAIN; Start 11/10/16 at 07:30 Polyethylene Glycol (miraLAX PACKET) 17 gm PRN DAILY PRN PO CONSTIPATION; Start 11/10/16 at 07:30 Non-Formulary Medication 2 puff PRN Q4-6HRS PRN IH SHORTNESS OF BREATH; Start at 07:30; Stop 11/10/16 at 07:50; Status DC Bumetanide (Bumex) 2 mg BID PO Last administered on 11/10/16 09:19; Start at 09:00 Vitamin D (Vitamin D3) 2,000 unit DAILY PO Last administered on 11/10/16 09:18 ; Start 11/10/16 at 09:00 Non-Formulary Medication 1 inh BID PRN IH SHORTNESS OF BREATH; Start 11/10/16 at 07:30; Stop 11/10/16 at 07:50; Status DC Cetirizine HCl (Zyrtec) 10 mg DAILY PO Last administered on 11/10/16 09:18; Start 11/10/16 at 09:00 Magnesium Chloride (Mag Delay) 64 mg DAILY PO Last administered on 11/10/16 09 :19; Start 11/10/16 at 09:00 Multivitamins/ Calcium (Thera M Plus) 1 tab DAILY PO Last administered on 10:01; Start 11/10/16 at 09:00 Budesonide (Pulmicort) 0.5 mg RTBID NEB ; Start 11/10/16 at 08:00 Albuterol Sulfate (Ventolin Neb Soln) 2.5 mg PRN Q4HRS PRN NEB SHORTNESS OF BREATH; Start 11/10/16 at 08:00 Active Scripts Active Mag Delay (Magnesium Chloride) 64 Mg Tablet.er 64 Mg PO DAILY Bumetanide 2 Mg Tablet 2 Mg PO BID Montelukast Sodium Tablet (Montelukast Sodium) 10 Mg Tablet 10 Mg PO QHS Metoprolol Tartrate 25 Mg Tablet 25 Mg PO BID 30 Days Hydrochlorothiazide Tablet (Hydrochlorothiazide) 25 Mg Tablet 25 Mg PO DAILY 30 Days Calcium Carbonate 200 Mg Tab.chew 1,000 Mg PO BIDWMEALS 30 Days Aspirin Ec (Aspirin) 325 Mg Tablet.dr 325 Mg PO DAILYWBKFT 30 Days Duoneb 0.5-3(2.5) Mg/3 Ml (Albuterol/Ipratropium) 3 Ml Ampul.neb 3 Ml NEB QID Reported Zyrtec (Cetirizine Hcl) 10 Mg Capsule 10 Mg PO Robaxin-750 (Methocarbamol) 750 Mg Tablet 2 Tab PO TID PRN Miralax (Polyethylene Glycol 3350) 17 Gm Powd.pack 1 Pkt PO PRN DAILY PRN Mucinex (Guaifenesin) 600 Mg Tablet.er 1 Tab PO BID Exemestane 25 Mg Tablet 25 Mg PO DAILY CHEMO MED Multivitamins (Multivitamin) 1 Each Tablet 1 Tab PO DAILY Vitamin D (Cholecalciferol (Vitamin D3)) 2,000 Unit Capsule 1 Cap PO DAILY Percocet 10-325 Mg Tablet (Oxycodone/Acetaminophen) 1 Each Tablet 1 Tab PO PRN Q6HRS PRN Oxycontin (Oxycodone HCl) 40 Mg Tab.er.12h 40 Mg PO BID Senna (Sennosides) 8.6 Mg Capsule 8.6 Mg PO PRN DAILY PRN Allopurinol 300 Mg Tablet 1 Tab PO DAILY Advair 250-50 Diskus (Fluticasone/Salmeterol) 1 Each Disk.w.dev 1 Inh IH BID PRN Loratadine 10 Mg Tablet 1 Tab PO DAILY Proair Hfa Inhaler (Albuterol Sulfate) 8.5 Gm Hfa.aer.ad 2 Puff IH PRN Q4-6HRS PRN Gabapentin 300 Mg Capsule 1 Cap PO TID Allergies Allergies: Coded Allergies: shellfish derived (Verified Allergy, Intermediate, hives, 05/19/16) seafood ROS Review of System UNABLE TO OBTAIN Physical Exam General: No acute distress HEENT: Atraumatic, PERRLA, EOMI Lungs: Normal air movement Heart: Regular rate, Normal S1 Abdomen: Normal bowel sounds, Soft, No tenderness Extremities: No edema Neuro: Other (CONFUSED) Psych/Mental Status: Other (LETHARGIC) MUSCULOSKELETAL: No deformity Vitals VITALS Vital Signs Date Time Temp Pulse Resp B/P Pulse Ox O2 Delivery O2 Flow Rate FiO2 11/10/16 11:03 97.2 86 18 105/73 97 Nasal Cannula 2.0 97.2 Labs Labs Laboratory Tests Test 11/09/16 21:45 11/09/16 22:30 11/09/16 23:30 11/10/16 03:30 Prothrombin Time 17.0SEC (11.7-14.0) Prothromb Time International Ratio 1.5 (0.8-1.1) Activated Partial Thromboplast Time 42SEC (24-38) Lactic Acid Level 1.5mmol/L (0.4-2.0) White Blood Count 8.7x10^3/uL (4.0-11.0) Red Blood Count 3.12x10^6/uL (3.50-5.40) Hemoglobin 10.3g/dL (12.0-15.5) Hematocrit 32.9% (36.0-47.0) Mean Corpuscular Volume 106fL (79-100) Mean Corpuscular Hemoglobin 33pg (25-35) Mean Corpuscular Hemoglobin Concent 31g/dL (31-37) Red Cell Distribution Width 24.4% (11.5-14.5) Platelet Count 63x10^3/uL (140-400) Neutrophils (%) (Auto) 74% (31-73) Lymphocytes (%) (Auto) 18% (24-48) Monocytes (%) (Auto) 7% (0-9) Eosinophils (%) (Auto) 0% (0-3) Basophils (%) (Auto) 1% (0-3) Neutrophils # (Auto) 6.5x10^3uL (1.8-7.7) Lymphocytes # (Auto) 1.6x10^3/uL (1.0-4.8) Monocytes # (Auto) 0.6x10^3/uL (0.0-1.1) Eosinophils # (Auto) 0.0x10^3/uL (0.0-0.7) Basophils # (Auto) 0.1x10^3/uL (0.0-0.2) Platelet Estimate Decreased (ADEQUATE) Polychromasia Slight Anisocytosis Mod Macrocytosis Slight Sodium Level 141mmol/L (136-145) 142mmol/L (136-145) Potassium Level 3.5mmol/L (3.5-5.1) 3.5mmol/L (3.5-5.1) Chloride Level 101mmol/L (98-107) 104mmol/L (98-107) Carbon Dioxide Level 24mmol/L (21-32) 24mmol/L (21-32) Anion Gap 16 (6-14) 14 (6-14) Blood Urea Nitrogen 130mg/dL (7-20) 134mg/dL (7-20) Creatinine 4.8mg/dL (0.6-1.0) 4.8mg/dL (0.6-1.0) Estimated GFR (Cockcroft-Gault) 11.5 11.5 Glucose Level 110mg/dL (70-99) 95mg/dL (70-99) Calcium Level 9.3mg/dL (8.5-10.1) 9.2mg/dL (8.5-10.1) Magnesium Level 2.6mg/dL (1.8-2.4) Total Bilirubin 9.1mg/dL (0.2-1.0) Direct Bilirubin 6.9mg/dL (0.0-0.2) Aspartate Amino Transf (AST/SGOT) 230U/L (15-37) Alanine Aminotransferase (ALT/SGPT) 50U/L (14-59) Alkaline Phosphatase 335U/L (46-116) Ammonia 67mcmol/L (11-34) Creatine Kinase 61U/L (26-192) Creatine Kinase MB (Mass) 1.3ng/mL (0.0-3.6) Creatine Kinase MB Relative Index % (0-4) Troponin I Quantitative 0.051ng/mL (0.000-0.055) AO-Guo-Q-Type Natriuretic Peptide 33659dz/mL (0-124) Total Protein 6.6g/dL (6.4-8.2) Albumin 2.1g/dL (3.4-5.0) Urine Collection Type U cath Urine Color Svetlana Urine Clarity Clear Urine pH 5.0 Urine Specific [place] 1.015 Urine Protein Negativemg/dL (NEG-TRACE) Urine Glucose (UA) Negativemg/dL (NEG) Urine Ketones (Stick) Negativemg/dL (NEG) Urine Blood Negative (NEG) Urine Nitrite Negative (NEG) Urine Bilirubin Moderate (NEG) Urine Urobilinogen Dipstick 1.0mg/dL (0.2 mg/dL) Urine Leukocyte Esterase Negative (NEG) Urine RBC 0/HPF (0-2) Urine WBC 0/HPF (0-4) Urine Squamous Epithelial Cells Occ/LPF Urine Amorphous Sediment Present/HPF Urine Bacteria 0/HPF (0-FEW) Urine Hyaline Casts Few/HPF Urine Mucus Slight/LPF Urine Opiates Screen Neg (NEG) Urine Methadone Screen Neg (NEG) Urine Barbiturates Neg (NEG) Urine Phencyclidine Screen Neg (NEG) Urine Amphetamine/Methamphetamine Neg (NEG) Urine Benzodiazepines Screen Neg (NEG) Urine Cocaine Screen Neg (NEG) Urine Cannabinoids Screen Neg (NEG) Urine Ethyl Alcohol Neg (NEG) Laboratory Tests Test 11/09/16 21:45 11/09/16 22:30 11/09/16 23:30 11/10/16 03:30 Prothrombin Time 17.0SEC (11.7-14.0) Prothromb Time International Ratio 1.5 (0.8-1.1) Activated Partial Thromboplast Time 42SEC (24-38) Lactic Acid Level 1.5mmol/L (0.4-2.0) White Blood Count 8.7x10^3/uL (4.0-11.0) Red Blood Count 3.12x10^6/uL (3.50-5.40) Hemoglobin 10.3g/dL (12.0-15.5) Hematocrit 32.9% (36.0-47.0) Mean Corpuscular Volume 106fL (79-100) Mean Corpuscular Hemoglobin 33pg (25-35) Mean Corpuscular Hemoglobin Concent 31g/dL (31-37) Red Cell Distribution Width 24.4% (11.5-14.5) Platelet Count 63x10^3/uL (140-400) Neutrophils (%) (Auto) 74% (31-73) Lymphocytes (%) (Auto) 18% (24-48) Monocytes (%) (Auto) 7% (0-9) Eosinophils (%) (Auto) 0% (0-3) Basophils (%) (Auto) 1% (0-3) Neutrophils # (Auto) 6.5x10^3uL (1.8-7.7) Lymphocytes # (Auto) 1.6x10^3/uL (1.0-4.8) Monocytes # (Auto) 0.6x10^3/uL (0.0-1.1) Eosinophils # (Auto) 0.0x10^3/uL (0.0-0.7) Basophils # (Auto) 0.1x10^3/uL (0.0-0.2) Platelet Estimate Decreased (ADEQUATE) Polychromasia Slight Anisocytosis Mod Macrocytosis Slight Sodium Level 141mmol/L (136-145) 142mmol/L (136-145) Potassium Level 3.5mmol/L (3.5-5.1) 3.5mmol/L (3.5-5.1) Chloride Level 101mmol/L (98-107) 104mmol/L (98-107) Carbon Dioxide Level 24mmol/L (21-32) 24mmol/L (21-32) Anion Gap 16 (6-14) 14 (6-14) Blood Urea Nitrogen 130mg/dL (7-20) 134mg/dL (7-20) Creatinine 4.8mg/dL (0.6-1.0) 4.8mg/dL (0.6-1.0) Estimated GFR (Cockcroft-Gault) 11.5 11.5 Glucose Level 110mg/dL (70-99) 95mg/dL (70-99) Calcium Level 9.3mg/dL (8.5-10.1) 9.2mg/dL (8.5-10.1) Magnesium Level 2.6mg/dL (1.8-2.4) Total Bilirubin 9.1mg/dL (0.2-1.0) Direct Bilirubin 6.9mg/dL (0.0-0.2) Aspartate Amino Transf (AST/SGOT) 230U/L (15-37) Alanine Aminotransferase (ALT/SGPT) 50U/L (14-59) Alkaline Phosphatase 335U/L (46-116) Ammonia 67mcmol/L (11-34) Creatine Kinase 61U/L (26-192) Creatine Kinase MB (Mass) 1.3ng/mL (0.0-3.6) Creatine Kinase MB Relative Index % (0-4) Troponin I Quantitative 0.051ng/mL (0.000-0.055) EZ-Mnx-F-Type Natriuretic Peptide 14387lu/mL (0-124) Total Protein 6.6g/dL (6.4-8.2) Albumin 2.1g/dL (3.4-5.0) Urine Collection Type U cath Urine Color Svetlana Urine Clarity Clear Urine pH 5.0 Urine Specific [place] 1.015 Urine Protein Negativemg/dL (NEG-TRACE) Urine Glucose (UA) Negativemg/dL (NEG) Urine Ketones (Stick) Negativemg/dL (NEG) Urine Blood Negative (NEG) Urine Nitrite Negative (NEG) Urine Bilirubin Moderate (NEG) Urine Urobilinogen Dipstick 1.0mg/dL (0.2 mg/dL) Urine Leukocyte Esterase Negative (NEG) Urine RBC 0/HPF (0-2) Urine WBC 0/HPF (0-4) Urine Squamous Epithelial Cells Occ/LPF Urine Amorphous Sediment Present/HPF Urine Bacteria 0/HPF (0-FEW) Urine Hyaline Casts Few/HPF Urine Mucus Slight/LPF Urine Opiates Screen Neg (NEG) Urine Methadone Screen Neg (NEG) Urine Barbiturates Neg (NEG) Urine Phencyclidine Screen Neg (NEG) Urine Amphetamine/Methamphetamine Neg (NEG) Urine Benzodiazepines Screen Neg (NEG) Urine Cocaine Screen Neg (NEG) Urine Cannabinoids Screen Neg (NEG) Urine Ethyl Alcohol Neg (NEG) Assessment/Plan Assessment/Plan IMP NEW ESRD PROB UREMIA ANEMIA MET BREAST CANCER MET ENCEPHALOPATHY LIVER FAILURE PLAN WILL ASK IR TO PLACE TEMP HD CATHETER FIRST HD TODAY WILL DO 3 HR TX WITH QB OF 300 UF 05-1.0 LITER TOLERATED GI EVAL AND TX POOR PROGNOSIS SUGGEST HEME/ONC EVAL NOLAN AGARWAL MD Nov 10, 2016 11:57
[2016-11-10] MEDS ORDERED: HEPARIN for ARTERIAL LINE 0 ML ONE (12:42)
[2016-11-10] MEDS ORDERED: HEPARIN for IV BOLUS 10,000 UNIT/10 ML VIAL. ONE (12:42)
[2016-11-10] MEDS ORDERED: LIDOCAINE 1% / SOD BICARB 8.4% 20 ML VIAL. IJ ONE (12:42)
--- NOTE | 2016-11-10 12:52 | PDOC ---
Provider Note Provider Note HEM/ONC CONSULT 1. STAGE 4 BREAST CA WITH LUNG AND BONE METS. NO HAS RENAL FAILURE, JAUNDICE. 2. RENAL FAILURE - CANCEL HD, PLAN COMFORT CARE I D/W DR RAI, PLAN HOSPICE I D/W PT AND FAMILY SEE DICTATION DINA MENDOZA MD Nov 10, 2016 12:52
--- NOTE | 2016-11-10 15:12 | PDOC2 ---
PALLIATIVE CARE Palliative Care Note Palliative Care Consult requested by Dr. Marvin to address goals of care/hospice. Diagnosis: Stage IV Breast Cancer with bone and lung mets; Renal Failure; Jaundice. Patient with eyes open--unable to verbalize or answer questions. No family at bedside Code Status: DNR/DNI Plan for Hemodialysis Catheter insertion discontinued after discussion with Chris per Dr. Marvin. Will reach family and arrange meeting [facility] 1700 Met with patient sister Chris. Patient's medical condition was reviewed this afternoon by Dr. Marvin. Daughter Mary (22y/o) was present. Patient has never been . Has 25 year old son Song and 17 year old daughter Eliza. Patient has no AD Per Chris children are not accepting / aware of their mothers condition. Not usually involved in her care. Confirmed Code Status: Chris states this was her sister decision. Discussed options for care. Home with hospice. vs senior living with hospice vs hospice house to pursue comfort care. Song and Mary are not available to meet today. Per Chris patient has not been eating or drinking much. Sleeping most of the time. Will plan on meeting 1100 in the morning to discuss comfort care and placement. CAILIN JONES Nov 10, 2016 15:12
--- NOTE | 2016-11-10 15:41 | HP ---
ADMIT DATE: 11/10/2016 CHIEF COMPLAINT: Shortness of breath. HISTORY OF PRESENT ILLNESS AND HOSPITAL COURSE: This patient is a 55-year-old -Guyanese female who has a long history of metastatic breast cancer, came to the hospital with increasing weakness and confusion, brought by EMS, despite the patient wishes to stay home. Upon arrival, it was discovered that the patient was in overt renal failure with evidence of acute on chronic diastolic congestive heart failure. Due to severity ____, she was admitted and Cardiology and Nephrology consults were obtained as well as Hematology/Oncology consults. The patient upon admission stated that she wanted restorative treatment because she had improved in the past, but after discussion with Hematology/Oncology, an evidence of progressive cancer. The patient and family had decided to proceed palliative measures and not proceed with emergent dialysis. The patient's sister and oldest daughter were in the room during this conversation. PAST MEDICAL HISTORY: Significant for: 1. Metastatic breast cancer with mets to bones and lungs. 2. Morbid obesity. 3. Diastolic congestive heart failure. 4. Chronic obstructive pulmonary disease. 5. Obstructive sleep apnea. 6. Hypertension. 7. Chronic atrial fibrillation. 8. Chronic kidney disease due to hypertension. 9. Gouty arthritis. PAST SURGICAL HISTORY: Significant for left mastectomy with followup breast reconstruction. ALLERGIES: THE PATIENT EXHIBITS ALLERGIES TO SHELLFISH, but no allergies to medications. FAMILY HISTORY: At this time is noncontributory. SOCIAL HISTORY: The patient is single. She lives at home with her youngest daughter and has family support from her sisters and other children. The patient had been smoking up to a pack per day until recently. The patient does not use alcohol. REVIEW OF SYSTEMS: The patient is unable to give adequate review of systems due to fatigue, although did have complaints of longstanding fatigue and recently with increasing shortness of breath. The patient does complain of pain on her right side. PHYSICAL EXAMINATION: GENERAL: This is a morbidly obese -Guyanese female, in no apparent distress. She is alert and oriented to person and place, but not to time. She is able to answer questions appropriately, but become somewhat obtunded during interview. HEENT: Reveals jaundice of the sclera. NECK: Supple. CARDIAC: Irregularly irregular. LUNGS: Clear. ABDOMEN: Nontender and soft. EXTREMITIES: Exhibit ____ nonpitting edema. NEUROLOGIC: Showed no unilateral findings. ASSESSMENT: 1. Acute on chronic renal failure. 2. Acute on chronic diastolic congestive heart failure. 3. Metastatic breast cancer. 4. Painless jaundice. 5. Chronic obstructive pulmonary disease. 6. Obstructive sleep apnea. 7. History of hypertension. 8. Chronic atrial fibrillation. 9. Severe protein malnutrition. PLAN: Initially was to admit the patient for aggressive care with diuresis and dialysis, but at this point, we will proceed with palliative care consult and likely hospice evaluation in home with ____ stabilized. CYNTHIA DILLON MD DR: LINDA/latisha JOB#: [id number] / [id number]
--- NOTE | 2016-11-10 16:33 | PDOC2 ---
CONSULT Date of Consult Date of Consult DATE: 11/10/16 TIME: 16:21 Reason for Consult Reason for Consult: breast cancer Referring Physician Referring Physician: Dr Gilmore Identification/Chief Complaint Chief Complaint Breast ca Source Source: Caregiver, Chart review, Patient History of Present Illness Reason for Visit: This patient is a 55-year-old -Nigerian female who has a long history of metastatic breast cancer, came to the hospital with increasing weakness and confusion, brought by EMS. Upon arrival, it was discovered that the patient was in overt renal failure with evidence of acute on chronic diastolic congestive heart failure and Jaundice. Labs: WBC 8.7, Hgb 10.3, plt 64, INR 1.5, BUN 134, Cr 4.8, bili 9.1 (direct 6.9) , AST 230, ALT 50, Alk Phos 335, ammonia 67, BNP [address]14. Head CT: multiple small numerous small lytic lesions of the calvarium. Abd US has been ordered. Pt answers a few questions; denies pain, says had noted yellowing of eyes. Past Medical History Cardiovascular: AFIB, HTN, Hyperlipidemia Pulmonary: COPD CENTRAL NERVOUS SYSTEM: Other GI: GERD Heme/Onc: Cancer Hepatobiliary: No pertinent hx Psych: Anxiety Musculoskeletal: Other Rheumatologic: No pertinent hx Infectious disease: No pertinent hx Renal/: Chronic renal insuff Endocrine: Diabetes Past Surgical History Past Surgical History: Cholecystectomy, Mastectomy Family History Family History: Diabetes, Hypertension Social History Lives: with Family Current Problem List Problem List Problems Medical Problems: (1) Acute liver failure Status: Acute (2) Acute on chronic renal failure Status: Acute (3) Acute on chronic renal failure Status: Acute (4) Metabolic encephalopathy Status: Acute (5) Respiratory distress Status: Acute (6) Severe protein-calorie malnutrition Status: Acute Current Medications Current Medications Current Medications Ondansetron HCl 4 mg 4 mg PRN Q8HRS PRN IV NAUSEA/VOMITING; Start 11/10/16 at 00:00; Stop 11/10/16 at 23:59 Sodium Chloride (Iv Sodium Chloride 0.9% 1000ml Bag) 1,000 ml @ 100 mls/hr Q10H IV Last administered on 11/10/16 11:30; Start 11/09/16 at 23:57; Stop at 23:56 Allopurinol (Zyloprim) 300 mg DAILY PO Last administered on 11/10/16 09:20; Start 11/10/16 at 09:00 Calcium Carbonate/ Glycine (Tums) 1,000 mg BIDWMEALS PO Last administered on 09:18; Start 11/10/16 at 08:00 Exemestane (Aromasin) 25 mg DAILY PO Last administered on 11/10/16 10:04; Start 11/10/16 at 09:00 Gabapentin (Neurontin) 300 mg TID PO Last administered on 11/10/16 15:10; Start 11/10/16 at 09:00 Guaifenesin (Mucinex) 600 mg BID PO Last administered on 11/10/16 09:19; Start 11/10/16 at 09:00 Hydrochlorothiazide (Hydrodiuril) 25 mg DAILY PO Last administered on 09:18; Start 11/10/16 at 09:00 Albuterol/ Ipratropium (Duoneb) 3 ml RTQID NEB Last administered on 11/10/16 15:03; Start 11/10/16 at 08:00 Methocarbamol (Robaxin) 750 mg PRN TID PRN PO PAIN; Start 11/10/16 at 07:30 Metoprolol Tartrate (Lopressor) 25 mg BID PO Last administered on 11/10/16 09: 20; Start 11/10/16 at 09:00 Montelukast Sodium (Singulair) 10 mg QHS PO ; Start 11/10/16 at 21:00 Oxycodone HCl (Oxycontin) 40 mg BID PO Last administered on 11/10/16 09:20; Start 11/10/16 at 09:00 Oxycodone/ Acetaminophen (Percocet 10/325) 1 tab PRN Q6HRS PRN PO PAIN; Start 11/10/16 at 07:30 Polyethylene Glycol (miraLAX PACKET) 17 gm PRN DAILY PRN PO CONSTIPATION; Start 11/10/16 at 07:30 Non-Formulary Medication 2 puff PRN Q4-6HRS PRN IH SHORTNESS OF BREATH; Start at 07:30; Stop 11/10/16 at 07:50; Status DC Bumetanide (Bumex) 2 mg BID PO Last administered on 11/10/16 09:19; Start at 09:00 Vitamin D (Vitamin D3) 2,000 unit DAILY PO Last administered on 11/10/16 09:18 ; Start 11/10/16 at 09:00 Non-Formulary Medication 1 inh BID PRN IH SHORTNESS OF BREATH; Start 11/10/16 at 07:30; Stop 11/10/16 at 07:50; Status DC Cetirizine HCl (Zyrtec) 10 mg DAILY PO Last administered on 11/10/16 09:18; Start 11/10/16 at 09:00 Magnesium Chloride (Mag Delay) 64 mg DAILY PO Last administered on 11/10/16 09 :19; Start 11/10/16 at 09:00 Multivitamins/ Calcium (Thera M Plus) 1 tab DAILY PO Last administered on 10:01; Start 11/10/16 at 09:00 Budesonide (Pulmicort) 0.5 mg RTBID NEB Last administered on 11/10/16 11:50; Start 11/10/16 at 08:00 Albuterol Sulfate (Ventolin Neb Soln) 2.5 mg PRN Q4HRS PRN NEB SHORTNESS OF BREATH; Start 11/10/16 at 08:00 Darbepoetin Chuy (Aranesp) 60 mcg WEEKLYHS SQ ; Start 11/10/16 at 21:00 Heparin Sodium (Porcine) 10,000 unit STK-MED ONCE .ROUTE ; Start 11/10/16 at 12: 42; Stop 11/10/16 at 12:43; Status DC Lidocaine/Sodium Bicarbonate 20 ml 20 ml STK-MED ONCE IJ ; Start 11/10/16 at 12: 42; Stop 11/10/16 at 12:43; Status DC Heparin Sodium/ Sodium Chloride 0 ml @ As Directed STK-MED ONCE .ROUTE ; Start 11/10/16 at 12:42; Stop 11/10/16 at 12:43; Status DC Active Scripts Active Mag Delay (Magnesium Chloride) 64 Mg Tablet.er 64 Mg PO DAILY Bumetanide 2 Mg Tablet 2 Mg PO BID Montelukast Sodium Tablet (Montelukast Sodium) 10 Mg Tablet 10 Mg PO QHS Metoprolol Tartrate 25 Mg Tablet 25 Mg PO BID 30 Days Hydrochlorothiazide Tablet (Hydrochlorothiazide) 25 Mg Tablet 25 Mg PO DAILY 30 Days Calcium Carbonate 200 Mg Tab.chew 1,000 Mg PO BIDWMEALS 30 Days Aspirin Ec (Aspirin) 325 Mg Tablet.dr 325 Mg PO DAILYWBKFT 30 Days Duoneb 0.5-3(2.5) Mg/3 Ml (Albuterol/Ipratropium) 3 Ml Ampul.neb 3 Ml NEB QID Reported Zyrtec (Cetirizine Hcl) 10 Mg Capsule 10 Mg PO Robaxin-750 (Methocarbamol) 750 Mg Tablet 2 Tab PO TID PRN Miralax (Polyethylene Glycol 3350) 17 Gm Powd.pack 1 Pkt PO PRN DAILY PRN Mucinex (Guaifenesin) 600 Mg Tablet.er 1 Tab PO BID Exemestane 25 Mg Tablet 25 Mg PO DAILY CHEMO MED Multivitamins (Multivitamin) 1 Each Tablet 1 Tab PO DAILY Vitamin D (Cholecalciferol (Vitamin D3)) 2,000 Unit Capsule 1 Cap PO DAILY Percocet 10-325 Mg Tablet (Oxycodone/Acetaminophen) 1 Each Tablet 1 Tab PO PRN Q6HRS PRN Oxycontin (Oxycodone HCl) 40 Mg Tab.er.12h 40 Mg PO BID Senna (Sennosides) 8.6 Mg Capsule 8.6 Mg PO PRN DAILY PRN Allopurinol 300 Mg Tablet 1 Tab PO DAILY Advair 250-50 Diskus (Fluticasone/Salmeterol) 1 Each Disk.w.dev 1 Inh IH BID PRN Loratadine 10 Mg Tablet 1 Tab PO DAILY Proair Hfa Inhaler (Albuterol Sulfate) 8.5 Gm Hfa.aer.ad 2 Puff IH PRN Q4-6HRS PRN Gabapentin 300 Mg Capsule 1 Cap PO TID Allergies Allergies: Coded Allergies: shellfish derived (Verified Allergy, Intermediate, hives, 05/19/16) seafood ROS General: YES: Fatigue, Malaise, No: Appetite, Chills, Night Sweats, Other PSYCHOLOGICAL ROS: No: Anxiety, Behavioral Disorder, Concentration difficultie , Decreased libido, Depression, Disorientation, Hallucinations, Hostility, Irritablity, Memory difficulties, Mood Swings, Obsessive thoughts, Other, Physical abuse, Sexual abuse, Sleep disturbances, Suicidal ideation Eyes: No Blurry vision, No Decreased vision, No Double vision, No Dry eyes, No Excessive tearing, No Eye Pain, No Itchy Eyes, No Loss of vision, No Other, No Photophobia, No Scotomata, No Uses contacts, No Uses glasses HEENT: No: Epistaxis, Heacaches, Hearing change, Nasal congestion, Nasal discharge, Oral lesions, Other, Sinus pain, Sneezing, Snoring, Sore Throat, Tinnitus, Vertigo, Visual Changes, Vocal changes ALLERGY AND IMMUNOLOGY: No: Hives, Insect Bite Sensitivity, Itchy/Watery Eyes, Nasal Congestion, Other, Post Nasal Drip, Seasonal Allergies Hematological and Lymphatic: No: Bleeding Problems, Blood Clots, Blood Transfusions, Brusing, Night Sweats, Other, Pallor, Swollen Lymph Nodes ENDOCRINE: YES: Malaise/lethargy Breast: No New/Changing Breast Lumps, No Nipple changes, No Nipple discharge, No Other Respiratory: YES: SOB with excertion Cardiovascular: yes Edema Gastrointestinal: No Abdominal Pain, No Constipation, No Diarrhea, No Hematochezia, No Melena, No Nausea, No Other, No Vomiting Genitourinary: No , No , No , No , No , No , No , No Discharge, No Dysuria, No Flank Pain, No Frequency, No Hematuria, No Incontinence, No Other, No Pain, No Retention, No Urgency Musculoskeletal: Yes Muscular Weakness Neurological: No Behavorial Changes, No Bowel/Bladder ControlChng, No Confusion , No Dizziness, No Gait Disturbance, No Headaches, No Impaired Coord/balance, No Memory Loss, No Numbness/Tingling, No Other, No Seizures, No Speech Problems , No Tremors, No Visual Changes, No Weakness Skin: No Acne, No Dry Skin, No Eczema, No Hair Changes, No Lumps, No Mole Changes, No Mottling, No Nail Changes, No Other, No Pruritus, No Rash, No Skin Lesion Changes Physical Exam General: No acute distress HEENT: Atraumatic, Other (jaundice) Lungs: Clear to auscultation Heart: Normal S1, Normal S2 Abdomen: Soft Skin: No rashes Neuro: Normal speech Psych/Mental Status: Other (drowsy,lethargic) MUSCULOSKELETAL: No deformity Vitals VITALS Vital Signs Date Time Temp Pulse Resp B/P Pulse Ox O2 Delivery O2 Flow Rate FiO2 11/10/16 15:03 Nasal Cannula 2.0 11/10/16 14:42 97.7 107 18 104/80 95 97.7 Labs Labs Laboratory Tests Test 11/09/16 21:45 11/09/16 22:30 11/09/16 23:30 11/10/16 03:30 Prothrombin Time 17.0SEC (11.7-14.0) Prothromb Time International Ratio 1.5 (0.8-1.1) Activated Partial Thromboplast Time 42SEC (24-38) Lactic Acid Level 1.5mmol/L (0.4-2.0) White Blood Count 8.7x10^3/uL (4.0-11.0) Red Blood Count 3.12x10^6/uL (3.50-5.40) Hemoglobin 10.3g/dL (12.0-15.5) Hematocrit 32.9% (36.0-47.0) Mean Corpuscular Volume 106fL (79-100) Mean Corpuscular Hemoglobin 33pg (25-35) Mean Corpuscular Hemoglobin Concent 31g/dL (31-37) Red Cell Distribution Width 24.4% (11.5-14.5) Platelet Count 63x10^3/uL (140-400) Neutrophils (%) (Auto) 74% (31-73) Lymphocytes (%) (Auto) 18% (24-48) Monocytes (%) (Auto) 7% (0-9) Eosinophils (%) (Auto) 0% (0-3) Basophils (%) (Auto) 1% (0-3) Neutrophils # (Auto) 6.5x10^3uL (1.8-7.7) Lymphocytes # (Auto) 1.6x10^3/uL (1.0-4.8) Monocytes # (Auto) 0.6x10^3/uL (0.0-1.1) Eosinophils # (Auto) 0.0x10^3/uL (0.0-0.7) Basophils # (Auto) 0.1x10^3/uL (0.0-0.2) Platelet Estimate Decreased (ADEQUATE) Polychromasia Slight Anisocytosis Mod Macrocytosis Slight Sodium Level 141mmol/L (136-145) 142mmol/L (136-145) Potassium Level 3.5mmol/L (3.5-5.1) 3.5mmol/L (3.5-5.1) Chloride Level 101mmol/L (98-107) 104mmol/L (98-107) Carbon Dioxide Level 24mmol/L (21-32) 24mmol/L (21-32) Anion Gap 16 (6-14) 14 (6-14) Blood Urea Nitrogen 130mg/dL (7-20) 134mg/dL (7-20) Creatinine 4.8mg/dL (0.6-1.0) 4.8mg/dL (0.6-1.0) Estimated GFR (Cockcroft-Gault) 11.5 11.5 Glucose Level 110mg/dL (70-99) 95mg/dL (70-99) Calcium Level 9.3mg/dL (8.5-10.1) 9.2mg/dL (8.5-10.1) Magnesium Level 2.6mg/dL (1.8-2.4) Total Bilirubin 9.1mg/dL (0.2-1.0) Direct Bilirubin 6.9mg/dL (0.0-0.2) Aspartate Amino Transf (AST/SGOT) 230U/L (15-37) Alanine Aminotransferase (ALT/SGPT) 50U/L (14-59) Alkaline Phosphatase 335U/L (46-116) Ammonia 67mcmol/L (11-34) Creatine Kinase 61U/L (26-192) Creatine Kinase MB (Mass) 1.3ng/mL (0.0-3.6) Creatine Kinase MB Relative Index % (0-4) Troponin I Quantitative 0.051ng/mL (0.000-0.055) US-Cjf-A-Type Natriuretic Peptide 55222sh/mL (0-124) Total Protein 6.6g/dL (6.4-8.2) Albumin 2.1g/dL (3.4-5.0) Urine Collection Type U cath Urine Color Svetlana Urine Clarity Clear Urine pH 5.0 Urine Specific [place] 1.015 Urine Protein Negativemg/dL (NEG-TRACE) Urine Glucose (UA) Negativemg/dL (NEG) Urine Ketones (Stick) Negativemg/dL (NEG) Urine Blood Negative (NEG) Urine Nitrite Negative (NEG) Urine Bilirubin Moderate (NEG) Urine Urobilinogen Dipstick 1.0mg/dL (0.2 mg/dL) Urine Leukocyte Esterase Negative (NEG) Urine RBC 0/HPF (0-2) Urine WBC 0/HPF (0-4) Urine Squamous Epithelial Cells Occ/LPF Urine Amorphous Sediment Present/HPF Urine Bacteria 0/HPF (0-FEW) Urine Hyaline Casts Few/HPF Urine Mucus Slight/LPF Urine Opiates Screen Neg (NEG) Urine Methadone Screen Neg (NEG) Urine Barbiturates Neg (NEG) Urine Phencyclidine Screen Neg (NEG) Urine Amphetamine/Methamphetamine Neg (NEG) Urine Benzodiazepines Screen Neg (NEG) Urine Cocaine Screen Neg (NEG) Urine Cannabinoids Screen Neg (NEG) Urine Ethyl Alcohol Neg (NEG) Laboratory Tests Test 11/09/16 21:45 11/09/16 22:30 11/09/16 23:30 11/10/16 03:30 Prothrombin Time 17.0SEC (11.7-14.0) Prothromb Time International Ratio 1.5 (0.8-1.1) Activated Partial Thromboplast Time 42SEC (24-38) Lactic Acid Level 1.5mmol/L (0.4-2.0) White Blood Count 8.7x10^3/uL (4.0-11.0) Red Blood Count 3.12x10^6/uL (3.50-5.40) Hemoglobin 10.3g/dL (12.0-15.5) Hematocrit 32.9% (36.0-47.0) Mean Corpuscular Volume 106fL (79-100) Mean Corpuscular Hemoglobin 33pg (25-35) Mean Corpuscular Hemoglobin Concent 31g/dL (31-37) Red Cell Distribution Width 24.4% (11.5-14.5) Platelet Count 63x10^3/uL (140-400) Neutrophils (%) (Auto) 74% (31-73) Lymphocytes (%) (Auto) 18% (24-48) Monocytes (%) (Auto) 7% (0-9) Eosinophils (%) (Auto) 0% (0-3) Basophils (%) (Auto) 1% (0-3) Neutrophils # (Auto) 6.5x10^3uL (1.8-7.7) Lymphocytes # (Auto) 1.6x10^3/uL (1.0-4.8) Monocytes # (Auto) 0.6x10^3/uL (0.0-1.1) Eosinophils # (Auto) 0.0x10^3/uL (0.0-0.7) Basophils # (Auto) 0.1x10^3/uL (0.0-0.2) Platelet Estimate Decreased (ADEQUATE) Polychromasia Slight Anisocytosis Mod Macrocytosis Slight Sodium Level 141mmol/L (136-145) 142mmol/L (136-145) Potassium Level 3.5mmol/L (3.5-5.1) 3.5mmol/L (3.5-5.1) Chloride Level 101mmol/L (98-107) 104mmol/L (98-107) Carbon Dioxide Level 24mmol/L (21-32) 24mmol/L (21-32) Anion Gap 16 (6-14) 14 (6-14) Blood Urea Nitrogen 130mg/dL (7-20) 134mg/dL (7-20) Creatinine 4.8mg/dL (0.6-1.0) 4.8mg/dL (0.6-1.0) Estimated GFR (Cockcroft-Gault) 11.5 11.5 Glucose Level 110mg/dL (70-99) 95mg/dL (70-99) Calcium Level 9.3mg/dL (8.5-10.1) 9.2mg/dL (8.5-10.1) Magnesium Level 2.6mg/dL (1.8-2.4) Total Bilirubin 9.1mg/dL (0.2-1.0) Direct Bilirubin 6.9mg/dL (0.0-0.2) Aspartate Amino Transf (AST/SGOT) 230U/L (15-37) Alanine Aminotransferase (ALT/SGPT) 50U/L (14-59) Alkaline Phosphatase 335U/L (46-116) Ammonia 67mcmol/L (11-34) Creatine Kinase 61U/L (26-192) Creatine Kinase MB (Mass) 1.3ng/mL (0.0-3.6) Creatine Kinase MB Relative Index % (0-4) Troponin I Quantitative 0.051ng/mL (0.000-0.055) DM-Lgw-C-Type Natriuretic Peptide 18928gt/mL (0-124) Total Protein 6.6g/dL (6.4-8.2) Albumin 2.1g/dL (3.4-5.0) Urine Collection Type U cath Urine Color Svetlana Urine Clarity Clear Urine pH 5.0 Urine Specific [place] 1.015 Urine Protein Negativemg/dL (NEG-TRACE) Urine Glucose (UA) Negativemg/dL (NEG) Urine Ketones (Stick) Negativemg/dL (NEG) Urine Blood Negative (NEG) Urine Nitrite Negative (NEG) Urine Bilirubin Moderate (NEG) Urine Urobilinogen Dipstick 1.0mg/dL (0.2 mg/dL) Urine Leukocyte Esterase Negative (NEG) Urine RBC 0/HPF (0-2) Urine WBC 0/HPF (0-4) Urine Squamous Epithelial Cells Occ/LPF Urine Amorphous Sediment Present/HPF Urine Bacteria 0/HPF (0-FEW) Urine Hyaline Casts Few/HPF Urine Mucus Slight/LPF Urine Opiates Screen Neg (NEG) Urine Methadone Screen Neg (NEG) Urine Barbiturates Neg (NEG) Urine Phencyclidine Screen Neg (NEG) Urine Amphetamine/Methamphetamine Neg (NEG) Urine Benzodiazepines Screen Neg (NEG) Urine Cocaine Screen Neg (NEG) Urine Cannabinoids Screen Neg (NEG) Urine Ethyl Alcohol Neg (NEG) Assessment/Plan Assessment/Plan Assessment & Plan: Ms De La Fuente is a 55-year-old female with the following medical problems: 1.T2 N1 M1 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 I will consult palliative care. I d/w pt's sister and daughter. I d/w Dr Gilmore. 2. Significant physical deconditioning comment performance score now 4 for her. 3. Acute on chronic kidney insufficiency. Appreciate renal consult. Advised cancel dialysis as she will be proceeding with comfort care and hospice. 4. Worsening thrombocytopenia. 5. Jaundice - appreciate GI consult. DINA MENDOZA MD Nov 10, 2016 16:33
[2016-11-10] MEDS ORDERED: FENTANYL PF 100 MCG/2 ML VIAL. IV PRN (17:30)
[2016-11-10] MEDS ORDERED: DARBEPOETIN ALFA 60 MCG/0.3 ML DISP.SYRIN. SQ SCH (21:00)
[2016-11-10] MEDS ORDERED: MONTELUKAST SODIUM 10 MG TABLET. PO SCH (21:00)
[2016-11-11 02:56] VITALS: BP 91/52
--- NOTE | 2016-11-11 04:33 | CONS ---
DATE OF CONSULTATION: 11/10/2016 ATTENDING PHYSICIAN: Dr. Cong Gilmore. REASON FOR CONSULTATION: The patient is seen in pulmonary consultation at the request of Dr. Gilmore for dyspnea. HISTORY OF PRESENT ILLNESS: The patient is a 55-year-old, that presented with altered mental status. She was brought to the Emergency Room by EMS. Family called due to concerns of the patient's decreased level of consciousness. There was a report of increasing lethargy, increasing shortness of breath over the last several days. She has a history of breast cancer status post mastectomy, currently follows at [facility]. She was found to have O2 saturations in the 80s, was started on supplemental oxygen. I was asked to see her in consultation. Upon my evaluation, the patient was unable to provide any history. She was lethargic and would fall asleep. I did wake her up and asked her if she was short of breath. She states that yes, she was short of breath. She was last seen by this Pulmonary service back in July 2016. At that time, she had bilateral pulmonary infiltrates which were felt to be multifactorial in nature, possibly related to her chemotherapeutic agent. I reviewed the current chest x-ray which is markedly improved. PAST MEDICAL HISTORY: 1. Metastatic breast cancer. 2. Morbid obesity. 3. Chronic diastolic heart failure. 4. COPD. 5. Obstructive sleep apnea. 6. Hypertension. 7. Chronic AFib. 8. Chronic kidney disease. PAST SURGICAL HISTORY: Status post mastectomy. ALLERGIES: SHELLFISH. No medication allergies. FAMILY HISTORY: Unknown. SOCIAL HISTORY: She lives at home with daughter. REVIEW OF SYSTEMS: Unobtainable secondary to the patient's condition. CURRENT MEDICATIONS: List was reviewed. Please see the MRAD. PHYSICAL EXAMINATION: VITAL SIGNS: The patient is currently on 2 liters of oxygen supplementation, in no significant respiratory distress. HEENT: Eyes: The sclerae were nonicteric. NECK: Jugular venous distention could not be assessed secondary to body habitus. CHEST: Full expansion. LUNGS: Adequate airway flow, no wheezes. CARDIOVASCULAR: Regular rate and rhythm, with S1, S2, no S3. ABDOMEN: Soft, nontender, nondistended. EXTREMITIES: No clubbing, cyanosis, or edema. LABORATORY DATA: Reviewed. White count was normal. Hemoglobin and hematocrit were chronically low. Electrolytes were noted. BUN was elevated. Creatinine was elevated. Chest x-ray revealed improving infiltrates compared to previous x-ray. IMPRESSION: 1. Dyqjv-ln-sbtssle respiratory failure, multifactorial. 2. Acute exacerbation of chronic obstructive pulmonary disease. 3. Acute metabolic encephalopathy. 4. New end-stage renal disease. 5. Metastatic breast cancer. 6. Liver failure. PLAN: 1. Suspect the patient's overall status will improve with hemodialysis. The patient has been seen by Nephrology Service. 2. From my standpoint of view, I recommend steroids. No need for antibiotics. 3. Continue home medications. 4. Follow Palliative Care input. Dr. Gilmore, I do appreciate the privilege in sharing in the patient's care. TING QUINN MD DR: JUANITO/latisha JOB#: [id number] / [id number]
[2016-11-11 06:15] LABS: BASO % 0 % (0-3); EOS % 0 % (0-3); HEMATOCRIT 29.7 % (36.0-47.0); HEMOGLOBIN 9.5 g/dL (12.0-15.5); LYMPH # 2.5 x10^3/uL (1.0-4.8); LYMPH % 23 % (24-48); MEAN CORPUSCULAR HEMOGLOBIN 34 pg (25-35); MEAN CORPUSCULAR HGB CONC 32 g/dL (31-37); MEAN CORPUSCULAR VOLUME 105 fL (79-100); MONO % 8 % (0-9); NEUT % 68 % (31-73); PLATELET COUNT 66 x10^3/uL (140-400); RED BLOOD COUNT 2.82 x10^6/uL (3.50-5.40); RED CELL DISTRIBUTION WIDTH 25.4 % (11.5-14.5); WHITE BLOOD COUNT 10.6 x10^3/uL (4.0-11.0)
[2016-11-11 06:23] LABS: CALCIUM 8.9 mg/dL (8.5-10.1); CREATININE 5.5 mg/dL (0.6-1.0); GFR 9.8; POTASSIUM 4.6 mmol/L (3.5-5.1)
[2016-11-11 07:27] VITALS: BP 104/68
[2016-11-11] MEDS: BUDESONIDE 0.5 MG/2 ML NEBU NEB SCH (07:30)
[2016-11-11] MEDS: IPRATRPIUM/ALBUTEROL 0.5/2.5MG 3 ML NEBU. NEB SCH ×3 (07:30→15:37)
--- NOTE | 2016-11-11 08:31 | RAD ---
INDICATION: Elevated liver function tests with metastatic disease. COMPARISON: 08/02/2016 TECHNIQUE: Grayscale and color ultrasound images obtained through the abdomen. FINDINGS: Aorta/IVC: Not well seen Pancreas: Poorly seen Liver: Heterogenous echotexture. Gallbladder: Removed Common Bile Duct: Not dilated. Right Kidney: No hydronephrosis. 7 mm hypoechoic lesion is visualized. Mild to moderate ascites. Hepatofugal flow in main portal vein IMPRESSION: Heterogeneity of the liver is identified with possible underlying isoechoic solid lesions. A follow-up CT or MRI liver protocol could further evaluate for underlying liver masses. There is some ascites seen with some septations and complexity. Reversed flow in main portal vein
--- NOTE | 2016-11-11 09:03 | PDOC ---
Subjective: Subjective: Onc f/u- Stage IV breast cancer Pt lethargic this AM, does not respond to any questions. Attempted to call her sister, Chris, who has accompanied her to clinic appts, left message. Planning for hospice. Objective: Vital Signs: Vital Signs Date Time Temp Pulse Resp B/P Pulse Ox O2 Delivery O2 Flow Rate FiO2 11/11/16 07:30 93 Nasal Cannula 2.0 11/11/16 07:27 97.7 129 19 104/68 97.7 Physical Exam: Heart: Regular rate Extremities: No edema General: Other (lethargic, alert to voice but gives no responses) Lungs: Normal air movement Skin: No rashes Labs/Imaging: Cr further elevated, Bili elevated, worsening hgb CBC, CMP reviewed CT head neg Assessment/Plan A/P: Stage IV breast cancer with intolerance to tx, off recent clinic trial. Debility- Was admitted at in Dec and OH'ed to rehab, declined f/u in onc or renal clinics after that A on CKD- No dialysis, proceeding with hospice. Agree with hospice, pt has been progression in this manner but declined returning to clinics to discuss further. Family aware from previous discussions as well. Attempted to call her sister Chris, left message. Appreciate [facility] care assistance. Dr. Marvin is covering this weekend if any questions arise. TITO RAI DO Nov 11, 2016 09:03
--- NOTE | 2016-11-11 09:11 | PDOC ---
PROGRESS NOTES Subjective Subjective Patient more obtundent today. She fade in and out and is unable to answer questions. Family meeting planned for today. agree with hospice house or home with hospice. will stop all P.O.meds patient is now unable to protect airway. Objective Objective Vital Signs Date Time Temp Pulse Resp B/P Pulse Ox O2 Delivery O2 Flow Rate FiO2 11/11/16 07:30 93 Nasal Cannula 2.0 11/11/16 07:27 97.7 129 19 104/68 97.7 Intake and Output 11/11/16 07:00 Intake Total 0 ml Output Total 0 ml Balance 0 ml Intake Oral 0 ml Output Urine Total 0 ml # Voids 3 Physical Exam Abdomen: Other (minimal) Heart: Regular rate Extremities: Other (2 + edema) General: Other (Obtundent) HEENT: Other (Jaundice) Lungs: Other (coarse) Assessment Assessment Problems Medical Problems: (1) Acute liver failure Status: Acute (2) Acute on chronic renal failure Status: Acute (3) Acute on chronic renal failure Status: Acute (4) Metabolic encephalopathy Status: Acute (5) Respiratory distress Status: Acute (6) Severe protein-calorie malnutrition Status: Acute 1. Acute on chronic renal failure. 2. Acute on chronic diastolic congestive heart failure. 3. Metastatic breast cancer. 4. Uremia 5. Chronic obstructive pulmonary disease. 6. Obstructive sleep apnea. 7. History of hypertension. 8. Chronic atrial fibrillation. 9. Severe protein malnutrition. 10.Painless jaundice. Plan Plan of Care Palliative group home with hospice or hospice house D/C po meds Comment Review of Relevant I have reviewed the following items kassie (where applicable) has been applied. Labs Laboratory Tests Test 11/09/16 21:45 11/09/16 22:30 11/09/16 23:30 11/10/16 03:30 Prothrombin Time 17.0SEC (11.7-14.0) Prothromb Time International Ratio 1.5 (0.8-1.1) Activated Partial Thromboplast Time 42SEC (24-38) Lactic Acid Level 1.5mmol/L (0.4-2.0) White Blood Count 8.7x10^3/uL (4.0-11.0) Red Blood Count 3.12x10^6/uL (3.50-5.40) Hemoglobin 10.3g/dL (12.0-15.5) Hematocrit 32.9% (36.0-47.0) Mean Corpuscular Volume 106fL (79-100) Mean Corpuscular Hemoglobin 33pg (25-35) Mean Corpuscular Hemoglobin Concent 31g/dL (31-37) Red Cell Distribution Width 24.4% (11.5-14.5) Platelet Count 63x10^3/uL (140-400) Neutrophils (%) (Auto) 74% (31-73) Lymphocytes (%) (Auto) 18% (24-48) Monocytes (%) (Auto) 7% (0-9) Eosinophils (%) (Auto) 0% (0-3) Basophils (%) (Auto) 1% (0-3) Neutrophils # (Auto) 6.5x10^3uL (1.8-7.7) Lymphocytes # (Auto) 1.6x10^3/uL (1.0-4.8) Monocytes # (Auto) 0.6x10^3/uL (0.0-1.1) Eosinophils # (Auto) 0.0x10^3/uL (0.0-0.7) Basophils # (Auto) 0.1x10^3/uL (0.0-0.2) Platelet Estimate Decreased (ADEQUATE) Polychromasia Slight Anisocytosis Mod Macrocytosis Slight Sodium Level 141mmol/L (136-145) 142mmol/L (136-145) Potassium Level 3.5mmol/L (3.5-5.1) 3.5mmol/L (3.5-5.1) Chloride Level 101mmol/L (98-107) 104mmol/L (98-107) Carbon Dioxide Level 24mmol/L (21-32) 24mmol/L (21-32) Anion Gap 16 (6-14) 14 (6-14) Blood Urea Nitrogen 130mg/dL (7-20) 134mg/dL (7-20) Creatinine 4.8mg/dL (0.6-1.0) 4.8mg/dL (0.6-1.0) Estimated GFR (Cockcroft-Gault) 11.5 11.5 Glucose Level 110mg/dL (70-99) 95mg/dL (70-99) Calcium Level 9.3mg/dL (8.5-10.1) 9.2mg/dL (8.5-10.1) Magnesium Level 2.6mg/dL (1.8-2.4) Total Bilirubin 9.1mg/dL (0.2-1.0) Direct Bilirubin 6.9mg/dL (0.0-0.2) Aspartate Amino Transf (AST/SGOT) 230U/L (15-37) Alanine Aminotransferase (ALT/SGPT) 50U/L (14-59) Alkaline Phosphatase 335U/L (46-116) Ammonia 67mcmol/L (11-34) Creatine Kinase 61U/L (26-192) Creatine Kinase MB (Mass) 1.3ng/mL (0.0-3.6) Creatine Kinase MB Relative Index % (0-4) Troponin I Quantitative 0.051ng/mL (0.000-0.055) RX-Ial-K-Type Natriuretic Peptide 48974nq/mL (0-124) Total Protein 6.6g/dL (6.4-8.2) Albumin 2.1g/dL (3.4-5.0) Urine Collection Type U cath Urine Color Svetlana Urine Clarity Clear Urine pH 5.0 Urine Specific [place] 1.015 Urine Protein Negativemg/dL (NEG-TRACE) Urine Glucose (UA) Negativemg/dL (NEG) Urine Ketones (Stick) Negativemg/dL (NEG) Urine Blood Negative (NEG) Urine Nitrite Negative (NEG) Urine Bilirubin Moderate (NEG) Urine Urobilinogen Dipstick 1.0mg/dL (0.2 mg/dL) Urine Leukocyte Esterase Negative (NEG) Urine RBC 0/HPF (0-2) Urine WBC 0/HPF (0-4) Urine Squamous Epithelial Cells Occ/LPF Urine Amorphous Sediment Present/HPF Urine Bacteria 0/HPF (0-FEW) Urine Hyaline Casts Few/HPF Urine Mucus Slight/LPF Urine Opiates Screen Neg (NEG) Urine Methadone Screen Neg (NEG) Urine Barbiturates Neg (NEG) Urine Phencyclidine Screen Neg (NEG) Urine Amphetamine/Methamphetamine Neg (NEG) Urine Benzodiazepines Screen Neg (NEG) Urine Cocaine Screen Neg (NEG) Urine Cannabinoids Screen Neg (NEG) Urine Ethyl Alcohol Neg (NEG) Test 11/11/16 05:35 White Blood Count 10.6x10^3/uL (4.0-11.0) Red Blood Count 2.82x10^6/uL (3.50-5.40) Hemoglobin 9.5g/dL (12.0-15.5) Hematocrit 29.7% (36.0-47.0) Mean Corpuscular Volume 105fL (79-100) Mean Corpuscular Hemoglobin 34pg (25-35) Mean Corpuscular Hemoglobin Concent 32g/dL (31-37) Red Cell Distribution Width 25.4% (11.5-14.5) Platelet Count 66x10^3/uL (140-400) Neutrophils (%) (Auto) 68% (31-73) Lymphocytes (%) (Auto) 23% (24-48) Monocytes (%) (Auto) 8% (0-9) Eosinophils (%) (Auto) 0% (0-3) Basophils (%) (Auto) 0% (0-3) Neutrophils # (Auto) 7.3x10^3uL (1.8-7.7) Lymphocytes # (Auto) 2.5x10^3/uL (1.0-4.8) Monocytes # (Auto) 0.8x10^3/uL (0.0-1.1) Eosinophils # (Auto) 0.0x10^3/uL (0.0-0.7) Basophils # (Auto) 0.0x10^3/uL (0.0-0.2) Sodium Level 142mmol/L (136-145) Potassium Level 4.6mmol/L (3.5-5.1) Chloride Level 103mmol/L (98-107) Carbon Dioxide Level 21mmol/L (21-32) Anion Gap 18 (6-14) Blood Urea Nitrogen 139mg/dL (7-20) Creatinine 5.5mg/dL (0.6-1.0) Estimated GFR (Cockcroft-Gault) 9.8 Glucose Level 79mg/dL (70-99) Calcium Level 8.9mg/dL (8.5-10.1) Laboratory Tests Test 11/11/16 05:35 White Blood Count 10.6x10^3/uL (4.0-11.0) Red Blood Count 2.82x10^6/uL (3.50-5.40) Hemoglobin 9.5g/dL (12.0-15.5) Hematocrit 29.7% (36.0-47.0) Mean Corpuscular Volume 105fL (79-100) Mean Corpuscular Hemoglobin 34pg (25-35) Mean Corpuscular Hemoglobin Concent 32g/dL (31-37) Red Cell Distribution Width 25.4% (11.5-14.5) Platelet Count 66x10^3/uL (140-400) Neutrophils (%) (Auto) 68% (31-73) Lymphocytes (%) (Auto) 23% (24-48) Monocytes (%) (Auto) 8% (0-9) Eosinophils (%) (Auto) 0% (0-3) Basophils (%) (Auto) 0% (0-3) Neutrophils # (Auto) 7.3x10^3uL (1.8-7.7) Lymphocytes # (Auto) 2.5x10^3/uL (1.0-4.8) Monocytes # (Auto) 0.8x10^3/uL (0.0-1.1) Eosinophils # (Auto) 0.0x10^3/uL (0.0-0.7) Basophils # (Auto) 0.0x10^3/uL (0.0-0.2) Sodium Level 142mmol/L (136-145) Potassium Level 4.6mmol/L (3.5-5.1) Chloride Level 103mmol/L (98-107) Carbon Dioxide Level 21mmol/L (21-32) Anion Gap 18 (6-14) Blood Urea Nitrogen 139mg/dL (7-20) Creatinine 5.5mg/dL (0.6-1.0) Estimated GFR (Cockcroft-Gault) 9.8 Glucose Level 79mg/dL (70-99) Calcium Level 8.9mg/dL (8.5-10.1) Microbiology 11/09/16 Blood Culture - Preliminary, Resulted NO GROWTH AFTER 1 DAY Medications Current Medications Ondansetron HCl 4 mg 4 mg PRN Q8HRS PRN IV NAUSEA/VOMITING; Start 11/10/16 at 00:00; Stop 11/10/16 at 23:59; Status DC Sodium Chloride (Iv Sodium Chloride 0.9% 1000ml Bag) 1,000 ml @ 100 mls/hr Q10H IV Last administered on 11/10/16 11:30; Start 11/09/16 at 23:57; Stop at 23:56; Status DC Allopurinol (Zyloprim) 300 mg DAILY PO Last administered on 11/10/16 09:20; Start 11/10/16 at 09:00; Stop 11/11/16 at 09:02; Status DC Calcium Carbonate/ Glycine (Tums) 1,000 mg BIDWMEALS PO Last administered on 09:18; Start 11/10/16 at 08:00; Stop 11/11/16 at 09:01; Status DC Exemestane (Aromasin) 25 mg DAILY PO Last administered on 11/10/16 10:04; Start 11/10/16 at 09:00 Gabapentin (Neurontin) 300 mg TID PO Last administered on 11/10/16 20:58; Start 11/10/16 at 09:00; Stop 11/11/16 at 09:02; Status DC Guaifenesin (Mucinex) 600 mg BID PO Last administered on 11/10/16 20:57; Start 11/10/16 at 09:00; Stop 11/11/16 at 09:01; Status DC Hydrochlorothiazide (Hydrodiuril) 25 mg DAILY PO Last administered on 09:18; Start 11/10/16 at 09:00; Stop 11/11/16 at 09:01; Status DC Albuterol/ Ipratropium (Duoneb) 3 ml RTQID NEB Last administered on 11/11/16 07:30; Start 11/10/16 at 08:00 Methocarbamol (Robaxin) 750 mg PRN TID PRN PO PAIN; Start 11/10/16 at 07:30; Stop 11/11/16 at 09:02; Status DC Metoprolol Tartrate (Lopressor) 25 mg BID PO Last administered on 11/10/16 21: 02; Start 11/10/16 at 09:00; Stop 11/11/16 at 09:02; Status DC Montelukast Sodium (Singulair) 10 mg QHS PO Last administered on 11/10/16 20: 57; Start 11/10/16 at 21:00; Stop 11/11/16 at 09:01; Status DC Oxycodone HCl (Oxycontin) 40 mg BID PO Last administered on 11/10/16 21:03; Start 11/10/16 at 09:00; Stop 11/11/16 at 09:02; Status DC Oxycodone/ Acetaminophen (Percocet 10/325) 1 tab PRN Q6HRS PRN PO PAIN; Start 11/10/16 at 07:30; Stop 11/11/16 at 09:02; Status DC Polyethylene Glycol (miraLAX PACKET) 17 gm PRN DAILY PRN PO CONSTIPATION; Start 11/10/16 at 07:30; Stop 11/11/16 at 09:02; Status DC Non-Formulary Medication 2 puff PRN Q4-6HRS PRN IH SHORTNESS OF BREATH; Start at 07:30; Stop 11/10/16 at 07:50; Status DC Bumetanide (Bumex) 2 mg BID PO Last administered on 11/10/16 20:57; Start at 09:00; Stop 11/11/16 at 09:02; Status DC Vitamin D (Vitamin D3) 2,000 unit DAILY PO Last administered on 11/10/16 09:18 ; Start 11/10/16 at 09:00; Stop 11/11/16 at 09:01; Status DC Non-Formulary Medication 1 inh BID PRN IH SHORTNESS OF BREATH; Start 11/10/16 at 07:30; Stop 11/10/16 at 07:50; Status DC Cetirizine HCl (Zyrtec) 10 mg DAILY PO Last administered on 11/10/16 09:18; Start 11/10/16 at 09:00; Stop 11/11/16 at 09:01; Status DC Magnesium Chloride (Mag Delay) 64 mg DAILY PO Last administered on 11/10/16 09 :19; Start 11/10/16 at 09:00; Stop 11/11/16 at 09:01; Status DC Multivitamins/ Calcium (Thera M Plus) 1 tab DAILY PO Last administered on 10:01; Start 11/10/16 at 09:00; Stop 11/11/16 at 09:02; Status DC Budesonide (Pulmicort) 0.5 mg RTBID NEB Last administered on 11/11/16t 07:30; Start 11/10/16 at 08:00 Albuterol Sulfate (Ventolin Neb Soln) 2.5 mg PRN Q4HRS PRN NEB SHORTNESS OF BREATH; Start 11/10/16 at 08:00 Darbepoetin Chuy (Aranesp) 60 mcg WEEKLYHS SQ Last administered on 11/10/16t 20 :58; Start 11/10/16 at 21:00 Heparin Sodium (Porcine) 10,000 unit STK-MED ONCE .ROUTE ; Start 11/10/16 at 12: 42; Stop 11/10/16 at 12:43; Status DC Lidocaine/Sodium Bicarbonate 20 ml 20 ml STK-MED ONCE IJ ; Start 11/10/16 at 12: 42; Stop 11/10/16 at 12:43; Status DC Heparin Sodium/ Sodium Chloride 0 ml @ As Directed STK-MED ONCE .ROUTE ; Start 11/10/16 at 12:42; Stop 11/10/16 at 12:43; Status DC Fentanyl Citrate (Fentanyl 2ml Vial) 25 mcg Q4HRS PRN IV PAIN; Start 11/10/16 at 17:30 Active Scripts Active Mag Delay (Magnesium Chloride) 64 Mg Tablet.er 64 Mg PO DAILY Bumetanide 2 Mg Tablet 2 Mg PO BID Montelukast Sodium Tablet (Montelukast Sodium) 10 Mg Tablet 10 Mg PO QHS Metoprolol Tartrate 25 Mg Tablet 25 Mg PO BID 30 Days Hydrochlorothiazide Tablet (Hydrochlorothiazide) 25 Mg Tablet 25 Mg PO DAILY 30 Days Calcium Carbonate 200 Mg Tab.chew 1,000 Mg PO BIDWMEALS 30 Days Aspirin Ec (Aspirin) 325 Mg Tablet.dr 325 Mg PO DAILYWBKFT 30 Days Duoneb 0.5-3(2.5) Mg/3 Ml (Albuterol/Ipratropium) 3 Ml Ampul.neb 3 Ml NEB QID Reported Zyrtec (Cetirizine Hcl) 10 Mg Capsule 10 Mg PO Robaxin-750 (Methocarbamol) 750 Mg Tablet 2 Tab PO TID PRN Miralax (Polyethylene Glycol 3350) 17 Gm Powd.pack 1 Pkt PO PRN DAILY PRN Mucinex (Guaifenesin) 600 Mg Tablet.er 1 Tab PO BID Exemestane 25 Mg Tablet 25 Mg PO DAILY CHEMO MED Multivitamins (Multivitamin) 1 Each Tablet 1 Tab PO DAILY Vitamin D (Cholecalciferol (Vitamin D3)) 2,000 Unit Capsule 1 Cap PO DAILY Percocet 10-325 Mg Tablet (Oxycodone/Acetaminophen) 1 Each Tablet 1 Tab PO PRN Q6HRS PRN Oxycontin (Oxycodone HCl) 40 Mg Tab.er.12h 40 Mg PO BID Senna (Sennosides) 8.6 Mg Capsule 8.6 Mg PO PRN DAILY PRN Allopurinol 300 Mg Tablet 1 Tab PO DAILY Advair 250-50 Diskus (Fluticasone/Salmeterol) 1 Each Disk.w.dev 1 Inh IH BID PRN Loratadine 10 Mg Tablet 1 Tab PO DAILY Proair Hfa Inhaler (Albuterol Sulfate) 8.5 Gm Hfa.aer.ad 2 Puff IH PRN Q4-6HRS PRN Gabapentin 300 Mg Capsule 1 Cap PO TID Vitals/I & O Vital Sign - Last 24 Hours 11/10/16 11/10/16 11/10/16 11/10/16 09:20 09:20 11:03 11:51 Temp 97.2 97.2 Pulse 94 86 Resp 18 B/P 104/66 105/73 Pulse Ox 97 97 O2 Delivery Nasal Cannula Nasal Cannula Nasal Cannula O2 Flow Rate 2.0 2.0 2.0 11/10/16 11/10/16 11/10/16 11/10/16 14:42 15:03 19:00 20:00 Temp 97.7 98.0 97.7 98.0 Pulse 107 63 Resp 18 18 B/P 104/80 110/50 Pulse Ox 95 93 O2 Delivery Nasal Cannula Nasal Cannula Nasal Cannula Nasal Cannula O2 Flow Rate 2.0 2.0 2.0 2.0 11/10/16 11/10/16 11/10/16 11/10/16 20:17 20:21 21:02 21:03 Pulse 120 B/P 101/80 Pulse Ox 93 93 93 O2 Delivery Nasal Cannula Nasal Cannula Nasal Cannula O2 Flow Rate 2.0 2.0 2.0 11/10/16 11/11/16 11/11/16 11/11/16 23:48 01:03 02:56 07:27 Temp 97.0 98.0 97.7 97.0 98.0 97.7 Pulse 100 111 129 Resp 20 18 19 B/P 90/66 91/52 104/68 Pulse Ox 92 92 92 91 O2 Delivery Nasal Cannula Nasal Cannula Nasal Cannula Nasal Cannula O2 Flow Rate 2.0 2.0 2.0 2.0 11/11/16 07:30 Pulse Ox 93 O2 Delivery Nasal Cannula O2 Flow Rate 2.0 Intake and Output 11/10/16 11/10/16 11/11/16 15:00 23:00 07:00 Intake Total 0 ml Output Total 0 ml Balance 0 ml CYNTHIA DILLON MD Nov 11, 2016 09:11
[2016-11-11 11:43] VITALS: BP 66/42
[2016-11-11] MEDS ORDERED: OXYC30TA21 PO (11:54)
[2016-11-11] MEDS ORDERED: LORA4VIA4 IJ (11:54)
[2016-11-11 12:13] LABS: ALBUMIN/GLOBULIN RATIO 0.5 (1.0-1.7); CREATININE 5.5 mg/dL (0.6-1.0); GFR 9.8; POTASSIUM 4.7 mmol/L (3.5-5.1); TOTAL BILIRUBIN 10.6 mg/dL (0.2-1.0); TOTAL PROTEIN 5.7 g/dL (6.4-8.2)
[2016-11-11 12:19] LABS: CALCIUM 9.1 mg/dL (8.5-10.1)
--- NOTE | 2016-11-11 13:31 | PDOC ---
PULMONARY PROGRESS NOTES Vitals Vital Signs Date Time Temp Pulse Resp B/P Pulse Ox O2 Delivery O2 Flow Rate FiO2 11/11/16 11:43 98.0 123 18 66/42 89 Nasal Cannula 2.0 98.0 General: Alert, Oriented X4, No acute distress Lungs: Other Cardiovascular: S1, S2 Abdomen: Soft, Non-tender Extremities: Other Labs Laboratory Tests Test 11/09/16 21:45 11/09/16 22:30 11/09/16 23:30 11/10/16 03:30 Prothrombin Time 17.0SEC (11.7-14.0) Prothromb Time International Ratio 1.5 (0.8-1.1) Activated Partial Thromboplast Time 42SEC (24-38) Lactic Acid Level 1.5mmol/L (0.4-2.0) White Blood Count 8.7x10^3/uL (4.0-11.0) Red Blood Count 3.12x10^6/uL (3.50-5.40) Hemoglobin 10.3g/dL (12.0-15.5) Hematocrit 32.9% (36.0-47.0) Mean Corpuscular Volume 106fL (79-100) Mean Corpuscular Hemoglobin 33pg (25-35) Mean Corpuscular Hemoglobin Concent 31g/dL (31-37) Red Cell Distribution Width 24.4% (11.5-14.5) Platelet Count 63x10^3/uL (140-400) Neutrophils (%) (Auto) 74% (31-73) Lymphocytes (%) (Auto) 18% (24-48) Monocytes (%) (Auto) 7% (0-9) Eosinophils (%) (Auto) 0% (0-3) Basophils (%) (Auto) 1% (0-3) Neutrophils # (Auto) 6.5x10^3uL (1.8-7.7) Lymphocytes # (Auto) 1.6x10^3/uL (1.0-4.8) Monocytes # (Auto) 0.6x10^3/uL (0.0-1.1) Eosinophils # (Auto) 0.0x10^3/uL (0.0-0.7) Basophils # (Auto) 0.1x10^3/uL (0.0-0.2) Platelet Estimate Decreased (ADEQUATE) Polychromasia Slight Anisocytosis Mod Macrocytosis Slight Sodium Level 141mmol/L (136-145) 142mmol/L (136-145) Potassium Level 3.5mmol/L (3.5-5.1) 3.5mmol/L (3.5-5.1) Chloride Level 101mmol/L (98-107) 104mmol/L (98-107) Carbon Dioxide Level 24mmol/L (21-32) 24mmol/L (21-32) Anion Gap 16 (6-14) 14 (6-14) Blood Urea Nitrogen 130mg/dL (7-20) 134mg/dL (7-20) Creatinine 4.8mg/dL (0.6-1.0) 4.8mg/dL (0.6-1.0) Estimated GFR (Cockcroft-Gault) 11.5 11.5 Glucose Level 110mg/dL (70-99) 95mg/dL (70-99) Calcium Level 9.3mg/dL (8.5-10.1) 9.2mg/dL (8.5-10.1) Magnesium Level 2.6mg/dL (1.8-2.4) Total Bilirubin 9.1mg/dL (0.2-1.0) Direct Bilirubin 6.9mg/dL (0.0-0.2) Aspartate Amino Transf (AST/SGOT) 230U/L (15-37) Alanine Aminotransferase (ALT/SGPT) 50U/L (14-59) Alkaline Phosphatase 335U/L (46-116) Ammonia 67mcmol/L (11-34) Creatine Kinase 61U/L (26-192) Creatine Kinase MB (Mass) 1.3ng/mL (0.0-3.6) Creatine Kinase MB Relative Index % (0-4) Troponin I Quantitative 0.051ng/mL (0.000-0.055) LO-Dsd-Q-Type Natriuretic Peptide 66105ot/mL (0-124) Total Protein 6.6g/dL (6.4-8.2) Albumin 2.1g/dL (3.4-5.0) Urine Collection Type U cath Urine Color Svetlana Urine Clarity Clear Urine pH 5.0 Urine Specific [place] 1.015 Urine Protein Negativemg/dL (NEG-TRACE) Urine Glucose (UA) Negativemg/dL (NEG) Urine Ketones (Stick) Negativemg/dL (NEG) Urine Blood Negative (NEG) Urine Nitrite Negative (NEG) Urine Bilirubin Moderate (NEG) Urine Urobilinogen Dipstick 1.0mg/dL (0.2 mg/dL) Urine Leukocyte Esterase Negative (NEG) Urine RBC 0/HPF (0-2) Urine WBC 0/HPF (0-4) Urine Squamous Epithelial Cells Occ/LPF Urine Amorphous Sediment Present/HPF Urine Bacteria 0/HPF (0-FEW) Urine Hyaline Casts Few/HPF Urine Mucus Slight/LPF Urine Opiates Screen Neg (NEG) Urine Methadone Screen Neg (NEG) Urine Barbiturates Neg (NEG) Urine Phencyclidine Screen Neg (NEG) Urine Amphetamine/Methamphetamine Neg (NEG) Urine Benzodiazepines Screen Neg (NEG) Urine Cocaine Screen Neg (NEG) Urine Cannabinoids Screen Neg (NEG) Urine Ethyl Alcohol Neg (NEG) Test 11/11/16 05:35 White Blood Count 10.6x10^3/uL (4.0-11.0) Red Blood Count 2.82x10^6/uL (3.50-5.40) Hemoglobin 9.5g/dL (12.0-15.5) Hematocrit 29.7% (36.0-47.0) Mean Corpuscular Volume 105fL (79-100) Mean Corpuscular Hemoglobin 34pg (25-35) Mean Corpuscular Hemoglobin Concent 32g/dL (31-37) Red Cell Distribution Width 25.4% (11.5-14.5) Platelet Count 66x10^3/uL (140-400) Neutrophils (%) (Auto) 68% (31-73) Lymphocytes (%) (Auto) 23% (24-48) Monocytes (%) (Auto) 8% (0-9) Eosinophils (%) (Auto) 0% (0-3) Basophils (%) (Auto) 0% (0-3) Neutrophils # (Auto) 7.3x10^3uL (1.8-7.7) Lymphocytes # (Auto) 2.5x10^3/uL (1.0-4.8) Monocytes # (Auto) 0.8x10^3/uL (0.0-1.1) Eosinophils # (Auto) 0.0x10^3/uL (0.0-0.7) Basophils # (Auto) 0.0x10^3/uL (0.0-0.2) Sodium Level 142mmol/L (136-145) Potassium Level 4.6mmol/L (3.5-5.1) Chloride Level 103mmol/L (98-107) Carbon Dioxide Level 21mmol/L (21-32) Anion Gap 18 (6-14) Blood Urea Nitrogen 139mg/dL (7-20) Creatinine 5.5mg/dL (0.6-1.0) Estimated GFR (Cockcroft-Gault) 9.8 BUN/Creatinine Ratio 25 (6-20) Glucose Level 79mg/dL (70-99) Calcium Level 8.9mg/dL (8.5-10.1) Total Bilirubin 10.6mg/dL (0.2-1.0) Aspartate Amino Transf (AST/SGOT) 327U/L (15-37) Alanine Aminotransferase (ALT/SGPT) 65U/L (14-59) Alkaline Phosphatase 322U/L (46-116) Total Protein 5.7g/dL (6.4-8.2) Albumin 2.0g/dL (3.4-5.0) Albumin/Globulin Ratio 0.5 (1.0-1.7) Laboratory Tests Test 11/11/16 05:35 White Blood Count 10.6x10^3/uL (4.0-11.0) Red Blood Count 2.82x10^6/uL (3.50-5.40) Hemoglobin 9.5g/dL (12.0-15.5) Hematocrit 29.7% (36.0-47.0) Mean Corpuscular Volume 105fL (79-100) Mean Corpuscular Hemoglobin 34pg (25-35) Mean Corpuscular Hemoglobin Concent 32g/dL (31-37) Red Cell Distribution Width 25.4% (11.5-14.5) Platelet Count 66x10^3/uL (140-400) Neutrophils (%) (Auto) 68% (31-73) Lymphocytes (%) (Auto) 23% (24-48) Monocytes (%) (Auto) 8% (0-9) Eosinophils (%) (Auto) 0% (0-3) Basophils (%) (Auto) 0% (0-3) Neutrophils # (Auto) 7.3x10^3uL (1.8-7.7) Lymphocytes # (Auto) 2.5x10^3/uL (1.0-4.8) Monocytes # (Auto) 0.8x10^3/uL (0.0-1.1) Eosinophils # (Auto) 0.0x10^3/uL (0.0-0.7) Basophils # (Auto) 0.0x10^3/uL (0.0-0.2) Sodium Level 142mmol/L (136-145) Potassium Level 4.6mmol/L (3.5-5.1) Chloride Level 103mmol/L (98-107) Carbon Dioxide Level 21mmol/L (21-32) Anion Gap 18 (6-14) Blood Urea Nitrogen 139mg/dL (7-20) Creatinine 5.5mg/dL (0.6-1.0) Estimated GFR (Cockcroft-Gault) 9.8 BUN/Creatinine Ratio 25 (6-20) Glucose Level 79mg/dL (70-99) Calcium Level 8.9mg/dL (8.5-10.1) Total Bilirubin 10.6mg/dL (0.2-1.0) Aspartate Amino Transf (AST/SGOT) 327U/L (15-37) Alanine Aminotransferase (ALT/SGPT) 65U/L (14-59) Alkaline Phosphatase 322U/L (46-116) Total Protein 5.7g/dL (6.4-8.2) Albumin 2.0g/dL (3.4-5.0) Albumin/Globulin Ratio 0.5 (1.0-1.7) Medications Active Scripts Medications Dose Route/Sig Days Date Category Dose Instructions Mag Delay (Magnesium Chloride) 64 Mg Tablet.er 64 Mg PO DAILY 08/09/16 Rx Bumetanide 2 Mg Tablet 2 Mg PO BID 08/09/16 Rx Montelukast Sodium Tablet (Montelukast Sodium) 10 Mg Tablet 10 Mg PO QHS 08/08/16 Rx Zyrtec (Cetirizine Hcl) 10 Mg Capsule 10 Mg PO 07/07/16 Reported Metoprolol Tartrate 25 Mg Tablet 25 Mg PO BID 30 07/07/16 Rx Hydrochlorothiazide Tablet (Hydrochlorothiazide) 25 Mg Tablet 25 Mg PO DAILY 30 07/07/16 Rx Calcium Carbonate 200 Mg Tab.chew 1,000 Mg PO BIDWMEALS 30 07/07/16 Rx Aspirin Ec (Aspirin) 325 Mg Tablet.dr 325 Mg PO DAILYWBKFT 30 07/07/16 Rx Robaxin-750 (Methocarbamol) 750 Mg Tablet 2 Tab PO TID PRN 07/01/16 Reported Duoneb 0.5-3(2.5) Mg/3 Ml (Albuterol/Ipratropium) 3 Ml Ampul.neb 3 Ml NEB QID 05/21/16 Rx Miralax (Polyethylene Glycol 3350) 17 Gm Powd.pack 1 Pkt PO PRN DAILY PRN 05/17/16 Reported Mucinex (Guaifenesin) 600 Mg Tablet.er 1 Tab PO BID 05/16/16 Reported Exemestane 25 Mg Tablet 25 Mg PO DAILY 05/16/16 Reported CHEMO MED Multivitamins (Multivitamin) 1 Each Tablet 1 Tab PO DAILY 01/06/16 Reported Vitamin D (Cholecalciferol (Vitamin D3)) 2,000 Unit Capsule 1 Cap PO DAILY 11/11/15 Reported Percocet 10-325 Mg Tablet (Oxycodone/Acetaminophen) 1 Each Tablet 1 Tab PO PRN Q6HRS PRN 09/14/15 Reported Oxycontin (Oxycodone HCl) 40 Mg Tab.er.12h 40 Mg PO BID 09/14/15 Reported Senna (Sennosides) 8.6 Mg Capsule 8.6 Mg PO PRN DAILY PRN 08/06/15 Reported Allopurinol 300 Mg Tablet 1 Tab PO DAILY 08/06/15 Reported Advair 250-50 Diskus (Fluticasone/Salmeterol) 1 Each Disk.w.dev 1 Inh IH BID PRN 08/06/15 Reported Loratadine 10 Mg Tablet 1 Tab PO DAILY 08/06/15 Reported Proair Hfa Inhaler (Albuterol Sulfate) 8.5 Gm Hfa.aer.ad 2 Puff IH PRN Q4-6HRS PRN 08/06/15 Reported Gabapentin 300 Mg Capsule 1 Cap PO TID 08/06/15 Reported Impression . [id number] THANKS HD SHOULD HELP CXR HAS IMPROVED COMPARED TO LAST ADMISSION SISILLO,SABATO MD Nov 11, 2016 13:31
--- NOTE | 2016-11-11 13:52 | PDOC ---
PULMONARY PROGRESS NOTES Vitals Vital Signs Date Time Temp Pulse Resp B/P Pulse Ox O2 Delivery O2 Flow Rate FiO2 11/11/16 11:43 98.0 123 18 66/42 89 Nasal Cannula 2.0 98.0 General: Alert, Oriented X4, No acute distress Lungs: Other Cardiovascular: S1, S2 Abdomen: Soft, Non-tender Extremities: Other Labs Laboratory Tests Test 11/09/16 21:45 11/09/16 22:30 11/09/16 23:30 11/10/16 03:30 Prothrombin Time 17.0SEC (11.7-14.0) Prothromb Time International Ratio 1.5 (0.8-1.1) Activated Partial Thromboplast Time 42SEC (24-38) Lactic Acid Level 1.5mmol/L (0.4-2.0) White Blood Count 8.7x10^3/uL (4.0-11.0) Red Blood Count 3.12x10^6/uL (3.50-5.40) Hemoglobin 10.3g/dL (12.0-15.5) Hematocrit 32.9% (36.0-47.0) Mean Corpuscular Volume 106fL (79-100) Mean Corpuscular Hemoglobin 33pg (25-35) Mean Corpuscular Hemoglobin Concent 31g/dL (31-37) Red Cell Distribution Width 24.4% (11.5-14.5) Platelet Count 63x10^3/uL (140-400) Neutrophils (%) (Auto) 74% (31-73) Lymphocytes (%) (Auto) 18% (24-48) Monocytes (%) (Auto) 7% (0-9) Eosinophils (%) (Auto) 0% (0-3) Basophils (%) (Auto) 1% (0-3) Neutrophils # (Auto) 6.5x10^3uL (1.8-7.7) Lymphocytes # (Auto) 1.6x10^3/uL (1.0-4.8) Monocytes # (Auto) 0.6x10^3/uL (0.0-1.1) Eosinophils # (Auto) 0.0x10^3/uL (0.0-0.7) Basophils # (Auto) 0.1x10^3/uL (0.0-0.2) Platelet Estimate Decreased (ADEQUATE) Polychromasia Slight Anisocytosis Mod Macrocytosis Slight Sodium Level 141mmol/L (136-145) 142mmol/L (136-145) Potassium Level 3.5mmol/L (3.5-5.1) 3.5mmol/L (3.5-5.1) Chloride Level 101mmol/L (98-107) 104mmol/L (98-107) Carbon Dioxide Level 24mmol/L (21-32) 24mmol/L (21-32) Anion Gap 16 (6-14) 14 (6-14) Blood Urea Nitrogen 130mg/dL (7-20) 134mg/dL (7-20) Creatinine 4.8mg/dL (0.6-1.0) 4.8mg/dL (0.6-1.0) Estimated GFR (Cockcroft-Gault) 11.5 11.5 Glucose Level 110mg/dL (70-99) 95mg/dL (70-99) Calcium Level 9.3mg/dL (8.5-10.1) 9.2mg/dL (8.5-10.1) Magnesium Level 2.6mg/dL (1.8-2.4) Total Bilirubin 9.1mg/dL (0.2-1.0) Direct Bilirubin 6.9mg/dL (0.0-0.2) Aspartate Amino Transf (AST/SGOT) 230U/L (15-37) Alanine Aminotransferase (ALT/SGPT) 50U/L (14-59) Alkaline Phosphatase 335U/L (46-116) Ammonia 67mcmol/L (11-34) Creatine Kinase 61U/L (26-192) Creatine Kinase MB (Mass) 1.3ng/mL (0.0-3.6) Creatine Kinase MB Relative Index % (0-4) Troponin I Quantitative 0.051ng/mL (0.000-0.055) KO-Fat-R-Type Natriuretic Peptide 72740ow/mL (0-124) Total Protein 6.6g/dL (6.4-8.2) Albumin 2.1g/dL (3.4-5.0) Urine Collection Type U cath Urine Color Svetlana Urine Clarity Clear Urine pH 5.0 Urine Specific Aiken 1.015 Urine Protein Negativemg/dL (NEG-TRACE) Urine Glucose (UA) Negativemg/dL (NEG) Urine Ketones (Stick) Negativemg/dL (NEG) Urine Blood Negative (NEG) Urine Nitrite Negative (NEG) Urine Bilirubin Moderate (NEG) Urine Urobilinogen Dipstick 1.0mg/dL (0.2 mg/dL) Urine Leukocyte Esterase Negative (NEG) Urine RBC 0/HPF (0-2) Urine WBC 0/HPF (0-4) Urine Squamous Epithelial Cells Occ/LPF Urine Amorphous Sediment Present/HPF Urine Bacteria 0/HPF (0-FEW) Urine Hyaline Casts Few/HPF Urine Mucus Slight/LPF Urine Opiates Screen Neg (NEG) Urine Methadone Screen Neg (NEG) Urine Barbiturates Neg (NEG) Urine Phencyclidine Screen Neg (NEG) Urine Amphetamine/Methamphetamine Neg (NEG) Urine Benzodiazepines Screen Neg (NEG) Urine Cocaine Screen Neg (NEG) Urine Cannabinoids Screen Neg (NEG) Urine Ethyl Alcohol Neg (NEG) Test 11/11/16 05:35 White Blood Count 10.6x10^3/uL (4.0-11.0) Red Blood Count 2.82x10^6/uL (3.50-5.40) Hemoglobin 9.5g/dL (12.0-15.5) Hematocrit 29.7% (36.0-47.0) Mean Corpuscular Volume 105fL (79-100) Mean Corpuscular Hemoglobin 34pg (25-35) Mean Corpuscular Hemoglobin Concent 32g/dL (31-37) Red Cell Distribution Width 25.4% (11.5-14.5) Platelet Count 66x10^3/uL (140-400) Neutrophils (%) (Auto) 68% (31-73) Lymphocytes (%) (Auto) 23% (24-48) Monocytes (%) (Auto) 8% (0-9) Eosinophils (%) (Auto) 0% (0-3) Basophils (%) (Auto) 0% (0-3) Neutrophils # (Auto) 7.3x10^3uL (1.8-7.7) Lymphocytes # (Auto) 2.5x10^3/uL (1.0-4.8) Monocytes # (Auto) 0.8x10^3/uL (0.0-1.1) Eosinophils # (Auto) 0.0x10^3/uL (0.0-0.7) Basophils # (Auto) 0.0x10^3/uL (0.0-0.2) Sodium Level 142mmol/L (136-145) Potassium Level 4.6mmol/L (3.5-5.1) Chloride Level 103mmol/L (98-107) Carbon Dioxide Level 21mmol/L (21-32) Anion Gap 18 (6-14) Blood Urea Nitrogen 139mg/dL (7-20) Creatinine 5.5mg/dL (0.6-1.0) Estimated GFR (Cockcroft-Gault) 9.8 BUN/Creatinine Ratio 25 (6-20) Glucose Level 79mg/dL (70-99) Calcium Level 8.9mg/dL (8.5-10.1) Total Bilirubin 10.6mg/dL (0.2-1.0) Aspartate Amino Transf (AST/SGOT) 327U/L (15-37) Alanine Aminotransferase (ALT/SGPT) 65U/L (14-59) Alkaline Phosphatase 322U/L (46-116) Total Protein 5.7g/dL (6.4-8.2) Albumin 2.0g/dL (3.4-5.0) Albumin/Globulin Ratio 0.5 (1.0-1.7) Laboratory Tests Test 11/11/16 05:35 White Blood Count 10.6x10^3/uL (4.0-11.0) Red Blood Count 2.82x10^6/uL (3.50-5.40) Hemoglobin 9.5g/dL (12.0-15.5) Hematocrit 29.7% (36.0-47.0) Mean Corpuscular Volume 105fL (79-100) Mean Corpuscular Hemoglobin 34pg (25-35) Mean Corpuscular Hemoglobin Concent 32g/dL (31-37) Red Cell Distribution Width 25.4% (11.5-14.5) Platelet Count 66x10^3/uL (140-400) Neutrophils (%) (Auto) 68% (31-73) Lymphocytes (%) (Auto) 23% (24-48) Monocytes (%) (Auto) 8% (0-9) Eosinophils (%) (Auto) 0% (0-3) Basophils (%) (Auto) 0% (0-3) Neutrophils # (Auto) 7.3x10^3uL (1.8-7.7) Lymphocytes # (Auto) 2.5x10^3/uL (1.0-4.8) Monocytes # (Auto) 0.8x10^3/uL (0.0-1.1) Eosinophils # (Auto) 0.0x10^3/uL (0.0-0.7) Basophils # (Auto) 0.0x10^3/uL (0.0-0.2) Sodium Level 142mmol/L (136-145) Potassium Level 4.6mmol/L (3.5-5.1) Chloride Level 103mmol/L (98-107) Carbon Dioxide Level 21mmol/L (21-32) Anion Gap 18 (6-14) Blood Urea Nitrogen 139mg/dL (7-20) Creatinine 5.5mg/dL (0.6-1.0) Estimated GFR (Cockcroft-Gault) 9.8 BUN/Creatinine Ratio 25 (6-20) Glucose Level 79mg/dL (70-99) Calcium Level 8.9mg/dL (8.5-10.1) Total Bilirubin 10.6mg/dL (0.2-1.0) Aspartate Amino Transf (AST/SGOT) 327U/L (15-37) Alanine Aminotransferase (ALT/SGPT) 65U/L (14-59) Alkaline Phosphatase 322U/L (46-116) Total Protein 5.7g/dL (6.4-8.2) Albumin 2.0g/dL (3.4-5.0) Albumin/Globulin Ratio 0.5 (1.0-1.7) Medications Active Scripts Medications Dose Route/Sig Days Date Category Dose Instructions Mag Delay (Magnesium Chloride) 64 Mg Tablet.er 64 Mg PO DAILY 08/09/16 Rx Bumetanide 2 Mg Tablet 2 Mg PO BID 08/09/16 Rx Montelukast Sodium Tablet (Montelukast Sodium) 10 Mg Tablet 10 Mg PO QHS 08/08/16 Rx Zyrtec (Cetirizine Hcl) 10 Mg Capsule 10 Mg PO 07/07/16 Reported Metoprolol Tartrate 25 Mg Tablet 25 Mg PO BID 30 07/07/16 Rx Hydrochlorothiazide Tablet (Hydrochlorothiazide) 25 Mg Tablet 25 Mg PO DAILY 30 07/07/16 Rx Calcium Carbonate 200 Mg Tab.chew 1,000 Mg PO BIDWMEALS 30 07/07/16 Rx Aspirin Ec (Aspirin) 325 Mg Tablet.dr 325 Mg PO DAILYWBKFT 30 07/07/16 Rx Robaxin-750 (Methocarbamol) 750 Mg Tablet 2 Tab PO TID PRN 07/01/16 Reported Duoneb 0.5-3(2.5) Mg/3 Ml (Albuterol/Ipratropium) 3 Ml Ampul.neb 3 Ml NEB QID 05/21/16 Rx Miralax (Polyethylene Glycol 3350) 17 Gm Powd.pack 1 Pkt PO PRN DAILY PRN 05/17/16 Reported Mucinex (Guaifenesin) 600 Mg Tablet.er 1 Tab PO BID 05/16/16 Reported Exemestane 25 Mg Tablet 25 Mg PO DAILY 05/16/16 Reported CHEMO MED Multivitamins (Multivitamin) 1 Each Tablet 1 Tab PO DAILY 01/06/16 Reported Vitamin D (Cholecalciferol (Vitamin D3)) 2,000 Unit Capsule 1 Cap PO DAILY 11/11/15 Reported Percocet 10-325 Mg Tablet (Oxycodone/Acetaminophen) 1 Each Tablet 1 Tab PO PRN Q6HRS PRN 09/14/15 Reported Oxycontin (Oxycodone HCl) 40 Mg Tab.er.12h 40 Mg PO BID 09/14/15 Reported Senna (Sennosides) 8.6 Mg Capsule 8.6 Mg PO PRN DAILY PRN 08/06/15 Reported Allopurinol 300 Mg Tablet 1 Tab PO DAILY 08/06/15 Reported Advair 250-50 Diskus (Fluticasone/Salmeterol) 1 Each Disk.w.dev 1 Inh IH BID PRN 08/06/15 Reported Loratadine 10 Mg Tablet 1 Tab PO DAILY 08/06/15 Reported Proair Hfa Inhaler (Albuterol Sulfate) 8.5 Gm Hfa.aer.ad 2 Puff IH PRN Q4-6HRS PRN 08/06/15 Reported Gabapentin 300 Mg Capsule 1 Cap PO TID 08/06/15 Reported Impression . 1. Ryoyw-mh-oexixmh respiratory failure, multifactorial. 2. Acute exacerbation of chronic obstructive pulmonary disease. 3. Acute metabolic encephalopathy. 4. New end-stage renal disease. 5. Metastatic breast cancer. 6. Liver failure. TING QUINN MD Nov 11, 2016 13:51
[2016-11-11 14:49] VITALS: BP 78/43
--- NOTE | 2016-11-11 19:15 | PDOC2 ---
PALLIATIVE CARE Palliative Care Note Palliative Care Patient with minimal response to verbal stimuli Met with daughter Eliza and Marlon; son Song ; niece/DPOA Bárbara, sister Chris and other nieces and nephews at 1100 Reviewed medical condition; family is aware of the medical condition==daughter spoke with Dr. Marvin yesterday and is ab le to verbalize her mother medical condition. Patient had never followed up with care after therapy; Family sees progressive decline and would like to focus on comfort care. Discussed options for Care; Home with Hospice vs Custodial with Hospice vs IP Hospice. Family would like to pursue IP Hospice at [place]. Jacqui KENDRICK called and will review records Confirmed Code Status: DNR/DNI form completed. Sulema LIZARRAGA will assist with discharge plan Plan: IP Hospice at [place]. DNR/DNI CAILIN JONES Nov 11, 2016 19:14
--- NOTE | 2016-11-11 23:05 | DS ---
DATE OF DISCHARGE: 11/11/2016 ADMITTING DIAGNOSIS: Acute on chronic renal failure. SECONDARY DIAGNOSES: 1. Metastatic breast cancer. 2. Pxyph-vb-qfooarn diastolic congestive heart failure. 3. Uremia. 4. Chronic obstructive pulmonary disease. 5. Obstructive sleep apnea. 6. Morbid obesity. 7. Hypertension. 8. Chronic atrial fibrillation. 9. Severe protein malnutrition. 10. Jaundice. 11. Elevated liver functions. 12. Multiorgan failure. HISTORY OF PRESENT ILLNESS AND HOSPITAL COURSE: This patient is a 55-year-old -[place] female with known metastatic breast cancer who has now failed all treatment and came to the hospital with increasing weakness and shortness of breath, found to have ongoing renal failure as well as congestive heart failure. Due to the progressive nature of disease and failed chemotherapy options on discussion was had with the family about restorative and aggressive treatment including dialysis, which the patient at this time will require to continue. Family, DPOA's and the patient did have meetings with palliative care and they decided to proceed with comfort measures. The patient is at extreme end of life and will be transferred to hospice house for continued hospice care with expected life expectancy within less than 1 week and certainly less than 6 months. All p.o. medications will be discontinued due to the patient's inability to swallow at this time. Anxiety and pain control will be managed by hospice comfort care. CYNTHIA DILLON MD DR: LINDA/latisha JOB#: [id number] / [id number]
== END 2016-11-11 17:45 | disposition hospice, inpatient (51) | DRG 441 ==
LOC: ER 20:20 → 5 SOUTH 23:21
PROVIDERS: ADMIT Family Medicine; ATTEND Family Medicine
DX: K72.00 Acute and subacute hepatic failure without coma (principal); N18.6 End stage renal disease; G93.41 Metabolic encephalopathy; I50.33 Acute on chronic diastolic (congestive) heart failure; E43 Unspecified severe protein-calorie malnutrition; J96.20 Acute and chronic respiratory failure, unspecified whether with hypoxia or hypercapnia; K83.1 Obstruction of bile duct; J44.1 Chronic obstructive pulmonary disease with (acute) exacerbation; I13.2 Hypertensive heart and chronic kidney disease with heart failure and with stage 5 chronic kidney disease, or end stage renal disease; N17.9 Acute kidney failure, unspecified; C50.919 Malignant neoplasm of unspecified site of unspecified female breast; D64.9 Anemia, unspecified; E11.22 Type 2 diabetes mellitus with diabetic chronic kidney disease; E66.01 Morbid (severe) obesity due to excess calories; E78.5 Hyperlipidemia, unspecified; F32.9 Major depressive disorder, single episode, unspecified; F41.9 Anxiety disorder, unspecified; G47.33 Obstructive sleep apnea (adult) (pediatric); I48.2 Chronic atrial fibrillation; K21.9 Gastro-esophageal reflux disease without esophagitis; M10.00 Idiopathic gout, unspecified site; M16.0 Bilateral primary osteoarthritis of hip; Z51.5 Encounter for palliative care; Z66 Do not resuscitate; Z80.0 Family history of malignant neoplasm of digestive organs; Z82.49 Family history of ischemic heart disease and other diseases of the circulatory system; Z83.3 Family history of diabetes mellitus; Z85.3 Personal history of malignant neoplasm of breast; Z87.891 Personal history of nicotine dependence; Z91.013 Allergy to seafood; Z92.21 Personal history of antineoplastic chemotherapy; Z68.35 Body mass index [BMI] 35.0-35.9, adult; Z85.830 Personal history of malignant neoplasm of bone; Z85.118 Personal history of other malignant neoplasm of bronchus and lung; Z90.49 Acquired absence of other specified parts of digestive tract
CPT/HCPCS: 36415; 70450; 71010; 73502; 76705; 80048; 80053; 80076; 81001; 82140; 82553; 83605; 83735; 83880; 84484; 85007; 85027; 85610; 85730; 87040; 93005; 94250; 94640; 94760; G0481; J0881; J3010; J7030; J7620; 99285-25